=== PATIENT | female | born 1950 | race Caucasian/White ===

== ENCOUNTER → 2017-03-26 | Outpatient (CLI) | payer MEDICARE ==
[~2017-03-26] MED LIST: LATA5OPD OU
--- NOTE | 2017-03-26 09:24 | REPMRS ---
Patient History The patient states she has not had a clinical breast exam in over a year. Patient is postmenopausal and is nulliparous. No known family history of cancer. Digital Woman Screen Mammo: March 26, 2017 - Exam #: [id number] Bilateral CC and MLO view(s) were taken. Technologist: Luz Moncada, Technologist Prior study comparison: 2001, bilateral screening mammogram. FINDINGS: The breast tissue is extremely dense which could obscure a lesion on mammography. There is no evidence of cancer on this mammogram. ASSESSMENT: BI-RADS/ACR category 2 mammogram. Benign finding(s). Recommendation Routine screening mammogram of both breasts in 1 year (for women over age 40). This mammogram was interpreted with the aid of an FDA-approved computer-aided dectection system. Electronically Signed By: Jv Martinez MD 03/26/17 0931
--- NOTE | 2017-03-29 09:34 | DEXA ---
AP SPINE L1 - L4 1.056 -1.1 0.5 LT FEMUR TOTAL 0.832 -1.4 -0.1 RT FEMUR TOTAL 0.747 -2.1 -0.8 TOTAL BODY TOTAL OTHER DUAL FEMUR FRAX* ASSESSMENT Risk factors: Not performed. 10 year probability of fracture Major osteoporotic fracture % Hip fracture % COMMENTS: There is low bone density of the spine and hips. FOLLOW-UP: Recommendation for the next bone density exam: 2 years. SILVAD
== END ==
LOC: M WHC 08:06
PROVIDERS: ATTEND Nurse Practitioner Family
DX: Z12.31 Encounter for screening mammogram for malignant neoplasm of breast (principal); Z13.820 Encounter for screening for osteoporosis
CPT/HCPCS: 77080; G0202

== ENCOUNTER → 2017-04-14 | Outpatient (REF) | payer MEDICARE ==
[2017-04-14 11:57] LABS: MEAN CORPUSCULAR HEMOGLOBIN 29.5 pg (27.0-33.0); MEAN CORPUSCULAR HGB CONC 33.2 g/dl (32.0-36.5); MEAN CORPUSCULAR VOLUME 88.7 fl (80.0-96.0); RED CELL DISTRIBUTION WIDTH 12.6 % (11.5-14.5); WHITE BLOOD COUNT 5.5 K/mm3 (4.0-10.0)
[2017-04-14 12:08] LABS: ALBUMIN 3.7 GM/DL (3.2-5.2); ALBUMIN/GLOBULIN RATIO 1.12 (1.00-1.93); ALKALINE PHOSPHATASE 67 U/L (45-117); ALT/SGPT 16 U/L (12-78); ANION GAP 9 MEQ/L (8-16); AST/SGOT 14 U/L (15-37); BILIRUBIN,TOTAL 0.4 MG/DL (0.2-1.0); BLOOD UREA NITROGEN 18 MG/DL (7-18); CALCIUM LEVEL 9.2 MG/DL (8.8-10.2); CARBON DIOXIDE LEVEL 28 MEQ/L (21-32); CHLORIDE LEVEL 106 MEQ/L (98-107); CHOLESTEROL LEVEL 215 MG/DL (<200); CREATININE FOR GFR 0.92 MG/DL (0.55-1.02); GLOMERULAR FILTRATION RATE > 60.0 (>45); GLUCOSE, FASTING 91 MG/DL (80-110); POTASSIUM SERUM 4.9 MEQ/L (3.5-5.1); SODIUM LEVEL 143 MEQ/L (136-145); TRIGLYCERIDES LEVEL 77 MG/DL (<150)
== END ==
LOC: M SFHCCLAY 08:24
PROVIDERS: ATTEND Nurse Practitioner Family
DX: Z13.0 Encounter for screening for diseases of the blood and blood-forming organs and certain disorders involving the immune mechanism (principal); Z13.1 Encounter for screening for diabetes mellitus; Z13.6 Encounter for screening for cardiovascular disorders; Z13.21 Encounter for screening for nutritional disorder; Z79.899 Other long term (current) drug therapy

== ENCOUNTER 2017-06-15 12:31 | Day surgery (SDC) | payer MEDICARE ==
[~2017-06-15] VITALS: Ht 157.5 cm; Wt 48.1 kg
[2017-06-15] MEDS ORDERED: LR 1,000 ML IV ONE (12:45)
[2017-06-15] MEDS ORDERED: LIDOCAINE 2% INJ 100 MG/5 ML SDV (FOR ANES.) As Ordered ONE (13:09)
[2017-06-15] MEDS ORDERED: PROPOFOL 200 MG/20 ML VIAL As Ordered ONE (13:09)
[2017-06-15] MEDS ORDERED: LABETALOL HCL 100 MG/20 ML VIAL As Ordered ONE (13:54)
--- NOTE | 2017-06-15 14:13 | ROOR ---
Patient Name: Idalia Spence Procedure Date: 06/15/2017 1:29 PM Date of : 1950 Age: 67 Room: [facility] Gender: Female Note Status: Finalized Procedure: Colonoscopy Indications: Screening for colorectal malignant neoplasm, This is the patient's first colonoscopy Providers: Frandy Pickering MD Referring MD: Cindy Lott NP Requesting Provider: Medicines: Monitored Anesthesia Care Complications: No immediate complications. Procedure: Pre-Anesthesia Assessment: - Prior to the procedure, a History and Physical was performed, and patient medications and allergies were reviewed. The patient is competent. The risks and benefits of the procedure and the sedation options and risks were discussed with the patient. All questions were answered and informed consent was obtained. Patient identification and proposed procedure were verified by the physician, the nurse and the anesthesiologist in the procedure room. Mental Status Examination: alert and oriented. Airway Examination: normal oropharyngeal airway and neck mobility. CV Examination: regular rate and rhythm. Prophylactic Antibiotics: The patient does not require prophylactic antibiotics. Prior Anticoagulants: The patient has taken no previous anticoagulant or antiplatelet agents. ASA Grade Assessment: I - A normal, healthy patient. After reviewing the risks and benefits, the patient was deemed in satisfactory condition to undergo the procedure. The anesthesia plan was to use monitored anesthesia care (MAC). Immediately prior to administration of medications, the patient was re-assessed for adequacy to receive sedatives. The heart rate, respiratory rate, oxygen saturations, blood pressure, adequacy of pulmonary ventilation, and response to care were monitored throughout the procedure. The physical status of the patient was re-assessed after the procedure. The was introduced through the anus and advanced to the cecum, identified by appendiceal orifice and ileocecal valve. The colonoscopy was somewhat difficult due to significant looping. The patient tolerated the procedure well. The quality of the bowel preparation was excellent. Findings: The perianal and digital rectal examinations were normal. A 10 mm polyp was found in the hepatic flexure. The polyp was sessile. The polyp was removed with a hot snare. Resection and retrieval were complete. Estimated blood loss: none. The exam was otherwise normal throughout the examined colon. Impression: - One 10 mm polyp at the hepatic flexure, removed with a hot snare. Resected and retrieved. Recommendation: - Discharge patient to home. - Resume previous diet. - Continue present medications. - Await pathology results. - Telephone endoscopist for pathology results in 1 week. Frandy Pickering MD 06/15/2017 2:12:26 PM Number of Addenda: 0 Note Initiated On: 06/15/2017 1:29 PM Estimated Blood Loss: Estimated blood loss: none.
[2017-06-15 14:30] VITALS: BP 177/79
== END 2017-06-15 14:43 | disposition home or self-care (01) ==
LOC: M OPP 12:31
PROVIDERS: ATTEND Surgery
DX: Z12.11 Encounter for screening for malignant neoplasm of colon (principal); Q43.8 Other specified congenital malformations of intestine; D12.3 Benign neoplasm of transverse colon; I10 Essential (primary) hypertension; H40.9 Unspecified glaucoma; Z79.899 Other long term (current) drug therapy

== ENCOUNTER → 2018-11-29 | Outpatient (REF) | payer MEDICARE ==
[~2018-11-29] MED LIST changes: +LATA0.0013 OU; -LATA5OPD OU
[2018-11-30 17:02] LABS: ALBUMIN 3.4 GM/DL (3.2-5.2); ALT/SGPT 15 U/L (12-78); BASO % 0.3 % (0.0-1.0); BILIRUBIN,TOTAL 0.4 MG/DL (0.2-1.0); BLOOD UREA NITROGEN 23 MG/DL (7-18); CALCIUM LEVEL 9.2 MG/DL (8.8-10.2); CARBON DIOXIDE LEVEL 33 MEQ/L (21-32); CHLORIDE LEVEL 107 MEQ/L (98-107); CHOLESTEROL LEVEL 214 MG/DL (<200); CHOLESTEROL RISK RATIO 4.115 (<5); CREATININE FOR GFR 0.96 MG/DL (0.55-1.30); EOS # 0.1 10^3/uL (0.0-0.50); EOS % 1.3 % (0.0-3.0); GLOMERULAR FILTRATION RATE > 60.0 (>45); GLUCOSE, FASTING 72 MG/DL (70-100); HDL CHOLESTEROL 52 MG/DL (>40); HEMATOCRIT 37.9 % (36.0-47.0); HEMOGLOBIN 12.9 g/dl (12.0-15.5); LDL CHOLESTEROL 122 MG/DL (<100); LYMPH # 2.8 10^3/uL (1.5-4.5); LYMPH % 28.7 % (24.0-44.0); MEAN CORPUSCULAR VOLUME 96.9 fl (80.0-96.0); MONO # 0.4 10^3/uL (0.0-0.8); MONO % 4.5 % (0.0-5.0); NEUTROPHILS # 6.3 10^3/uL (1.8-7.7); NEUTROPHILS % 64.7 % (36.0-66.0); NON-HDL-C 162 MG/DL; PLATELET COUNT, AUTOMATED 305 10^3/uL (150-450); POTASSIUM SERUM 4.1 MEQ/L (3.5-5.1); RED BLOOD COUNT 3.91 10^6/uL (4.00-5.40); SODIUM LEVEL 142 MEQ/L (136-145); TOTAL PROTEIN 6.6 GM/DL (6.4-8.2); TRIGLYCERIDES LEVEL 199 MG/DL (<150); WHITE BLOOD COUNT 9.8 10^3/uL (4.0-10.0)
[2018-11-30 17:03] LABS: TOTAL 25(OH) VITAMIN D 24.5 NG/ML (30.0-100.0)
== END ==
LOC: M SFHCCAPE 08:46
PROVIDERS: ATTEND Physician Assistant
DX: E78.00 Pure hypercholesterolemia, unspecified (principal); E55.9 Vitamin D deficiency, unspecified

== ENCOUNTER → 2018-12-19 | Outpatient (CLI) | payer MEDICARE ==
[~2018-12-19] MED LIST changes: +AMLO5TAB6 PO; +ATOR40TA75 PO; +CHLO125TA PO; +LOSA50TA88 PO
--- NOTE | 2018-12-19 18:45 | REP ---
Chest x-ray: Two views. History: Signs and symptoms of circulatory and radiation respiratory system. Findings: The lungs are slightly hyperinflated but free of infiltrate. Pleural angles are sharp. Heart size is normal. Pulmonary vasculature is not increased. No significant bony abnormality. Impression: Mild hyperinflation. Otherwise no acute disease. Electronically Signed by Ethan Pizarro MD 12/19/2018 07:39 P
== END ==
LOC: M RAD 16:19
PROVIDERS: ATTEND Internal Medicine Cardiovascular Disease
DX: R91.8 Other nonspecific abnormal finding of lung field (principal)

== ENCOUNTER → 2018-12-28 | Outpatient (REF) | payer MEDICARE ==
[2018-12-28 18:13] LABS: CALCIUM LEVEL 9.3 MG/DL (8.8-10.2); CREATININE FOR GFR 1.14 MG/DL (0.55-1.30); GLOMERULAR FILTRATION RATE 50.5 (>45)
== END ==
LOC: M LABDRWCV 17:15
PROVIDERS: ATTEND Internal Medicine
DX: N17.9 Acute kidney failure, unspecified (principal); E86.0 Dehydration

== ENCOUNTER → 2018-12-28 | Outpatient (REF) | payer MEDICARE ==
[2018-12-28 18:17] LABS: ALBUMIN 3.9 GM/DL (3.2-5.2); CALCIUM LEVEL 9.3 MG/DL (8.8-10.2); CREATININE FOR GFR 1.14 MG/DL (0.55-1.30); GLOMERULAR FILTRATION RATE 50.5 (>45); PHOSPHORUS LEVEL 3.3 MG/DL (2.5-4.9); POTASSIUM SERUM 3.9 MEQ/L (3.5-5.1)
== END ==
LOC: M LABDRWCV 17:14
PROVIDERS: ATTEND Internal Medicine Cardiovascular Disease
DX: I16.0 Hypertensive urgency (principal); I51.7 Cardiomegaly; R94.31 Abnormal electrocardiogram [ECG] [EKG]

== ENCOUNTER → 2019-03-16 | Outpatient (CLI) | payer MEDICARE ==
--- NOTE | 2019-03-16 10:35 | PFTRPT ---
Height: 62.00 Inches Weight: 104.00 Lbs BSA: 1.45 Diagnosis: R05 DATE OF PROCEDURE: 03/16/2019 ORDERED BY: JAMARCUS Simeon Spirometry: Pre and post bronchodilator study of excellent technical quality. Forced vital capacity borderline. FEV1 in proportion. Obstructive index is, therefore, normal. Flow Volume Loop: Expiratory limb of the flow volume loop suggests a nonspecific limitation. Lung Volumes: Total lung capacity is normal. Residual volume borderline for air trapping. Diffusing Capacity: Diffusing capacity is normal. Hemoglobin: Hemoglobin mildly reduced at 11.4. Airway Mechanics: Airway resistance and conductance are normal. IMPRESSION: Nonspecific limitation with underlying anemia. Please correlate clinically. MTDD
== END ==
LOC: M CARPUL 09:54
PROVIDERS: ATTEND Nurse Practitioner Family
DX: R05 Cough (principal)

== ENCOUNTER → 2019-03-23 | Outpatient (CLI) | payer MEDICARE ==
[~2019-03-23] MED LIST changes: +METHACHOLINE KIT (J7674) INH ONE
--- NOTE | 2019-03-23 10:50 | PFTRPT ---
Height: 62.00 Inches Weight: 104.00 Lbs BSA: 1.45 Diagnosis: R05 DATE OF PROCEDURE: 03/23/2019 ORDERED BY: JAMARCUS Simeon INTERPRETATION: Excellent technical quality. Under protocol, methacholine was administered. At a dose of 2.5 mg or 13.875 CDUs, a 23% decline in the FEV1 was noted. PC of 1.26 is significant. Flow rates did return to baseline post bronchodilator administration. IMPRESSION: Positive methacholine challenge study. MTDD
== END ==
LOC: M CARPUL 09:54
PROVIDERS: ATTEND Nurse Practitioner Family
DX: R05 Cough (principal)
CPT/HCPCS: 94070; 95070; J7674

== ENCOUNTER → 2019-04-13 | Outpatient (CLI) | payer MEDICARE ==
[~2019-04-13] MED LIST changes: -METHACHOLINE KIT (J7674) INH ONE
--- NOTE | 2019-04-13 14:54 | REP ---
Clinical: Trauma/injury with pain. Technique: AP, lateral, bilateral oblique views of the right wrist. Findings: Oblique view demonstrates a very subtle fracture along the lateral aspect of the radial metaphysis along with generalized soft tissue swelling. Underlying age-related changes noted. Impression: Subtle nondisplaced fracture of the distal radial metaphysis. Electronically Signed by Jayesh Kilgore MD 04/13/2019 02:46 P
--- NOTE | 2019-04-13 14:56 | REP ---
Clinical: Trauma. Technique: Frontal view of the chest with multiple views of the right hemithorax. Findings: Osteopenia and degenerative changes are appreciated and somewhat limit evaluation. Frontal view of the chest demonstrates no acute cardiopulmonary process. Multiple views of the right hemithorax demonstrates no obvious acute rib fracture or pathology. Impression: Limited by osteopenia and degenerative changes. No obvious acute right rib fracture identified. Electronically Signed by Jayesh Kilgore MD 04/13/2019 02:48 P
== END ==
LOC: M WUC 14:16
PROVIDERS: ATTEND Nurse Practitioner Family
DX: R07.81 Pleurodynia (principal); S52.501A Unspecified fracture of the lower end of right radius, initial encounter for closed fracture; X58.XXXA Exposure to other specified factors, initial encounter; Y92.89 Other specified places as the place of occurrence of the external cause

== ENCOUNTER → 2019-06-05 | Outpatient (REF) | payer MEDICARE | LOC: M LAB REF 16:04 | PROVIDERS: ATTEND Physician Assistant | DX: N39.0 Urinary tract infection, site not specified (principal) ==

== ENCOUNTER → 2019-07-19 | Outpatient (CLI) | payer MEDICARE ==
--- NOTE | 2019-07-21 14:10 | DEXA ---
AP SPINE L1 - L4 0.998 -1.6 0.1 LT FEMUR TOTAL 0.775 -1.8 -0.4 LT NECK 0.740 -2.1 -0.5 RT FEMUR TOTAL 0.754 -2.0 -0.6 RT NECK 0.724 -2.3 -0.6 TOTAL BODY TOTAL OTHER COMMENTS: There is low bone density of the spine and hips. The density of the spine has decreased 5.5% since 03/26/2017. The density of the left hip has decreased 6.9% since 03/26/2017. The density of the right hip has increased 0.9% since 03/26/2017. FOLLOW-UP: Recommendation for the next bone density exam: 2 years. JACINTO
== END ==
LOC: M WHC 14:54
PROVIDERS: ATTEND Physician Assistant
DX: M85.851 Other specified disorders of bone density and structure, right thigh (principal)

== ENCOUNTER → 2019-07-25 | Outpatient (REF) | payer MEDICARE ==
[2019-07-25 17:03] LABS: ALBUMIN 3.7 GM/DL (3.2-5.2); BASO % 0.6 % (0.0-1.0); BILIRUBIN,TOTAL 0.6 MG/DL (0.2-1.0); CHOLESTEROL RISK RATIO 2.566 (<5); CREATININE FOR GFR 0.98 MG/DL (0.55-1.30); EOS # 0.3 10^3/uL (0.0-0.5); EOS % 4.5 % (0.0-3.0); GLOMERULAR FILTRATION RATE 59.9 (>45); HEMATOCRIT 40.1 % (36.0-47.0); LYMPH # 1.7 10^3/uL (1.5-5.0); LYMPH % 27.3 % (24.0-44.0); MEAN CORPUSCULAR HEMOGLOBIN 29.7 pg (27.0-33.0); MEAN CORPUSCULAR HGB CONC 32.4 g/dl (32.0-36.5); MEAN CORPUSCULAR VOLUME 91.8 fl (80.0-96.0); MONO # 0.4 10^3/uL (0.0-0.8); MONO % 5.7 % (0.0-5.0); NEUTROPHILS # 3.8 10^3/uL (1.5-8.5); NEUTROPHILS % 61.6 % (36.0-66.0); PLATELET COUNT, AUTOMATED 252 10^3/uL (150-450); POTASSIUM SERUM 4.4 MEQ/L (3.5-5.1); RED BLOOD COUNT 4.37 10^6/uL (4.00-5.40); THYROID STIMULATING HORMONE 2.21 uIU/ML (0.358-3.740); WHITE BLOOD COUNT 6.2 10^3/uL (4.0-10.0)
== END ==
LOC: M SFHCCAPE 08:54
PROVIDERS: ATTEND Physician Assistant
DX: I10 Essential (primary) hypertension (principal); E55.9 Vitamin D deficiency, unspecified; E78.00 Pure hypercholesterolemia, unspecified

== ENCOUNTER → 2019-09-07 | Outpatient (REF) | payer MEDICARE | LOC: M LABDRWCV 16:08 | PROVIDERS: ATTEND Internal Medicine Endocrinology, Diabetes & Metabolism | DX: M81.0 Age-related osteoporosis without current pathological fracture (principal) ==

== ENCOUNTER → 2019-12-05 | Outpatient (CLI) | payer MEDICARE ==
[2019-12-05 19:51] LABS: CALCIUM LEVEL 9.2 MG/DL (8.8-10.2); CREATININE FOR GFR 1.08 MG/DL (0.55-1.30); GLOMERULAR FILTRATION RATE 53.5 (>45); POTASSIUM SERUM 4.5 MEQ/L (3.5-5.1)
== END ==
LOC: M WUC 15:58
PROVIDERS: ATTEND Internal Medicine Endocrinology, Diabetes & Metabolism
DX: M81.0 Age-related osteoporosis without current pathological fracture (principal)

== ENCOUNTER → 2020-01-22 | Outpatient (REF) | payer MEDICARE ==
[2020-01-22 17:14] LABS: BASO % 0.5 % (0.0-1.0); EOS # 0.3 10^3/uL (0.0-0.5); EOS % 4.8 % (0.0-3.0); HEMOGLOBIN 13.2 g/dl (12.0-15.5); LYMPH # 1.9 10^3/uL (1.5-5.0); LYMPH % 28.9 % (24.0-44.0); MEAN CORPUSCULAR HEMOGLOBIN 28.9 pg (27.0-33.0); MEAN CORPUSCULAR HGB CONC 31.4 g/dl (32.0-36.5); MEAN CORPUSCULAR VOLUME 92.1 fl (80.0-96.0); MONO # 0.3 10^3/uL (0.0-0.8); MONO % 5.1 % (0.0-5.0); NEUTROPHILS # 3.9 10^3/uL (1.5-8.5); NEUTROPHILS % 60.4 % (36.0-66.0); PLATELET COUNT, AUTOMATED 242 10^3/uL (150-450); RED BLOOD COUNT 4.56 10^6/uL (4.00-5.40); WHITE BLOOD COUNT 6.5 10^3/uL (4.0-10.0)
[2020-01-22 17:50] LABS: ALBUMIN 3.8 GM/DL (3.2-5.2); BILIRUBIN,TOTAL 0.7 MG/DL (0.2-1.0); CALCIUM LEVEL 8.9 MG/DL (8.8-10.2); CHOLESTEROL RISK RATIO 3.413 (<5); CREATININE FOR GFR 1.01 MG/DL (0.55-1.30); FREE T4 0.7 NG/DL (0.76-1.46); GLOMERULAR FILTRATION RATE 57.9 (>45); POTASSIUM SERUM 5.1 MEQ/L (3.5-5.1); THYROID STIMULATING HORMONE 1.77 uIU/ML (0.358-3.740)
[2020-01-23 10:30] LABS: TOTAL 25(OH) VITAMIN D 51.7 NG/ML (30.0-100.0)
== END ==
LOC: M SFHCCLAY 10:51
PROVIDERS: ATTEND Physician Assistant
DX: I10 Essential (primary) hypertension (principal); E78.00 Pure hypercholesterolemia, unspecified; E55.9 Vitamin D deficiency, unspecified

== ENCOUNTER → 2020-01-24 | Outpatient (CLI) | payer MEDICARE ==
[~2020-01-24] MED LIST changes: +AMLO1TAB24 PO; -AMLO5TAB6 PO
--- NOTE | 2020-01-24 17:18 | REP ---
Right shoulder: Three views. History: Acute pain in the right shoulder. Findings: Three views right shoulder demonstrate normal alignment of the glenohumeral and acromioclavicular joints. Periarticular soft tissues are unremarkable. There is diffuse osteopenia. No rib fracture or bony destructive lesion. Impression: Diffuse osteopenia. No acute abnormality. Electronically Signed by Ethan Pizarro MD 01/24/2020 05:07 P
== END ==
LOC: M CLY 15:46
PROVIDERS: ATTEND Physician Assistant
DX: M85.811 Other specified disorders of bone density and structure, right shoulder (principal); M25.511 Pain in right shoulder
CPT/HCPCS: 73030; G0463

== ENCOUNTER → 2020-07-16 | Outpatient (CLI) | payer MEDICARE ==
--- NOTE | 2020-07-16 17:14 | REP ---
INDICATION: M25.511 ACUTE PAIN OF RIGHT SHOULDER. Pain after a fall. COMPARISON: Comparison study January 24, 2020.. TECHNIQUE: Three views. FINDINGS: There is diffuse osteopenia. The right glenohumeral and the right acromioclavicular joints remain normally aligned. No humeral, scapular, or clavicle fracture is seen. The visualized right hemithorax is unremarkable. Periarticular soft tissues are unremarkable. IMPRESSION: Diffuse osteopenia. No traumatic abnormality noted. <Electronically signed by Royer Pizarro > 07/16/20 [id number]
== END ==
LOC: M CLY 11:24
PROVIDERS: ATTEND Physician Assistant
DX: M85.811 Other specified disorders of bone density and structure, right shoulder (principal); M25.511 Pain in right shoulder; Z23 Encounter for immunization
CPT/HCPCS: 73030; 90682; 90732; G0008; G0009

== ENCOUNTER → 2020-09-11 | Outpatient (REF) | payer MEDICARE ==
[~2020-09-11] MED LIST changes: +CALC600T60 PO; +TRUS1SOL OU; +VITMTA PO; +XALA0.007 OU
[2020-09-11 16:41] LABS: BASO % 0.5 % (0.0-1.0); EOS # 0.2 10^3/uL (0.0-0.5); EOS % 2.7 % (0.0-3.0); HEMATOCRIT 43.5 % (36.0-47.0); LYMPH # 2.1 10^3/uL (1.5-5.0); LYMPH % 27.7 % (24.0-44.0); MEAN CORPUSCULAR HEMOGLOBIN 29.8 pg (27.0-33.0); MEAN CORPUSCULAR HGB CONC 32.2 g/dl (32.0-36.5); MEAN CORPUSCULAR VOLUME 92.6 fl (80.0-96.0); MONO # 0.5 10^3/uL (0.0-0.8); NEUTROPHILS # 4.9 10^3/uL (1.5-8.5); PLATELET COUNT, AUTOMATED 259 10^3/uL (150-450); WHITE BLOOD COUNT 7.7 10^3/uL (4.0-10.0)
[2020-09-11 17:17] LABS: ALBUMIN 4.2 GM/DL (3.2-5.2); BILIRUBIN,TOTAL 0.4 MG/DL (0.2-1.0); CALCIUM LEVEL 10.7 MG/DL (8.8-10.2); CHOLESTEROL RISK RATIO 3.075 (<5); CREATININE FOR GFR 1.22 MG/DL (0.55-1.30); FREE T4 0.7 NG/DL (0.76-1.46); GLOMERULAR FILTRATION RATE 46.4 (>39); POTASSIUM SERUM 4.4 MEQ/L (3.5-5.1); THYROID STIMULATING HORMONE 2.16 uIU/ML (0.358-3.740); TOTAL PROTEIN 7.5 GM/DL (6.4-8.2)
[2020-09-11 18:24] LABS: TOTAL 25(OH) VITAMIN D 40.5 NG/ML (30.0-100.0)
== END ==
LOC: M SFHCCLAY 12:54
PROVIDERS: ATTEND Physician Assistant
DX: I10 Essential (primary) hypertension (principal); R79.89 Other specified abnormal findings of blood chemistry; E78.00 Pure hypercholesterolemia, unspecified; E55.9 Vitamin D deficiency, unspecified

== ENCOUNTER → 2020-09-18 | Outpatient (CLI) | payer MEDICARE | LOC: M LABSMTC 11:49 | PROVIDERS: ATTEND Anesthesiology | DX: Z20.828 Contact with and (suspected) exposure to other viral communicable diseases (principal) ==

== ENCOUNTER → 2020-09-19 | Outpatient (CLI) | payer MEDICARE ==
--- NOTE | 2020-09-20 01:33 | REP ---
INDICATION: J45.20 MILD INTERMITTENT ASTHMA UNCOMPICATED COMPARISON: 12/23/2018 TECHNIQUE: PA and lateral. FINDINGS: The mediastinum and cardiac silhouette are normal. The lung gudino are clear and without acute consolidation, effusion, or pneumothorax. The skeletal structures are intact and normal. IMPRESSION: No acute cardiopulmonary process. <Electronically signed by Jayesh Kilgore > 09/20/20 0129
== END ==
LOC: M CLY 12:38
PROVIDERS: ATTEND Nurse Practitioner Family
DX: J45.20 Mild intermittent asthma, uncomplicated (principal)
CPT/HCPCS: 71046; G0463

== ENCOUNTER 2020-09-23 07:46 | Day surgery (SDC) | payer MEDICARE ==
[~2020-09-23] VITALS: Ht 157.5 cm; Wt 52.3 kg
[~2020-09-23 07:46] MED LIST changes: +CEFUROXIME 1MG/0.1ML INTRACAMERAL INJ As Ordered ONE; +DUOVISC (0.50ML VISCOAT/0.55ML PROVISC) OPHTH KIT As Ordered ONE; +OFLOXACIN 0.3 % (OCUFLOX) OPTH SOL 5ML OS ONE; +PHENYLEPHRINE 2.5% OPHTH SOL 2ML OS ONE; +POVIDONE-IODINE 5% OPHTH PREP SOL 30ML As Ordered ONE; +PROPARACAINE 0.5% OPHTH SOL 15ML OS ONE; +TROPICAMIDE 1% OPHTH SOLN 2ML OS ONE
--- OUTSIDE RECORDS SUMMARY | 2020-09-23 07:49 | CCD | Continuity of Care Document ---
Author Organization Unknown Address Unknown Phone Unavailable Care Team Providers Care Early Childhood Assistant Name Role Phone Keesha Umanzor AUTM [phone] Problems Active Problems Provider Date Essential hypertension Onset: 04/20/2017 Minimal depression Onset: 01/18/2019 Pure hypercholesterolemia Onset: 019 Vitamin D deficiency Onset: 04/20/2017 Social History Type Date Description Comments Sex Unknown Tobacco Use Start: Unknown Never Smoked Cigarettes Smoking Status Reviewed: 11/28/19 Never Smoked Cigarettes ETOH Use Rarely consumes alcohol Allergies, Adverse Reactions, Alerts Active Allergies Reaction Severity Comments Date Lisinopril 06/23/2019 Medications Active Medications SIG Qnty Indications Ordering Provide r Date Zoledronic Acid 5mg/100ML Solution once yearly M81.0 Edelmira Price MD 09/14/2019 Carvedilol 6.25mg Tablets 1 p o bid Unknown Amlodipine Besylate 10mg Tablets Take 1 Tablet By Mouth Once Daily Unknown Atorvastatin Calcium 40mg Tablets Take 1 Tablet By Mouth Every Night AT Bedtime Unknown Latanoprost 0.005% Solution 1 gtt each eye at bedtime Unknown Dorzolamide HCL/Timolol Maleate 22.3-6.8mg/ml Solution Instill 1 Drop Into Each Eye Twice Daily Unknown Calcium Citrate + D3 [id number] Tablets 2 po qd Unknown Centrum Silver 50+Women 50+Women T ablets 1 po qd Unknown Biotin 1000mcg Tablets 2 po q d Unknown Vitamin D 50mcg (2000 Ut) Tablets 2 by mouth every day Unknown Immunizations CPT Code Status Date Vaccine Lot # [id number] Given 04/27/2019 Pneumococcal Con jugate Vaccine 13 Valent For Intramuscular Use Vital Signs Date Vital Result Comment 09/14/2019 12:45pm BP Systolic 118 mmHg BP Diastolic 74 mmHg Heart Rate 68 /min Height 61.5 inches 5'1.50" Weight 110.12 lb BMI (Body Mass Index) 20.5 kg/m2 O2 % BldC Oximetry 98 % 08/29/2019 1:46pm BP Systolic 112 mmHg BP Diastolic 62 mmHg Heart Rate 61 /min Height 61.5 inches 5'1.50" Weight 112.50 lb BMI (Body Mass Index) 20.9 kg/m2 O2 % BldC Oximetry 97 % Results Test Acquired Date Facility Test Result H/L Range Note CBC With Differential 09/11/[address] [address] ([phone] - White Blood Count 7.7 10 Normal 4.0-10.0 Red Blood Count 4.70 10 Normal 4.00-5.40 Hemoglobin 14.0 g/dL Normal 12.0-15.5 Hematocrit 43.5 % Normal 36.0-47.0 Mean Corpuscular Volume 92.6 fl Normal 80.0-96.0 Mean Corpuscular Hemoglobin 29.8 pg Normal 27.0-33.0 Mean Corpuscular HGB Conc 32.2 g/dL Normal 32.0-36.5 Red Cell Distribution Width 12.5 % Normal 11.5-14.5 Platelet Count, Automated 259 10 Normal 150-450 Neutrophils % 63.0 % Normal 36.0-66.0 Lymph % 27.7 % Normal 24.0-44.0 [place] % 6.0 % High 0.0-5.0 Eos % 2.7 % Normal 0.0-3.0 Baso % 0.5 % Normal 0.0-1.0 Immature Granulocyte % 0.1 % Normal 0-3.0 Nucleated Red Blood Cell % 0.0 % Normal 0-0 Neutrophils # 4.9 10 Normal 1.5-8.5 Lymph # 2.1 10 Normal 1.5-5.0 [place] # 0.5 10 Normal 0.0-0.8 Eos # 0.2 10 Normal 0.0-0.5 Baso # 0.0 10 Normal 0.0-0.2 Comprehensive Metabolic Profil 09/11/[address] [place] [address] [phone] - Glucose, Fasting 100 mg/dL Normal 70-100 Blood Urea Nitrogen 14 mg/dL Normal 7-18 Creatinine For GFR 1.22 mg/dL Normal 0.55-1.30 Glomerular Filtration Rate 46.4 Normal >39 1 Sodium Level 142 mEq/L Normal 136-145 Potassium Serum 4.4 mEq/L Normal 3.5-5.1 Chloride Level 106 mEq/L Normal 98-107 Carbon Dioxide Level 30 mEq/L Normal 21-32 Anion Gap 6 mEq/L Low 8-16 Calcium Level 10.7 mg/dL High 8.8-10.2 Ast/Sgot 17 U/L Normal 7-37 Alt/SGPT 21 U/L Normal 12-78 Alkaline Phosphatase 60 U/L Normal 45-117 Bilirubin,Total 0.4 mg/dL Normal 0.2-1.0 Total Protein 7.5 GM/DL Normal 6.4-8.2 Albumin 4.2 GM/DL Normal 3.2-5.2 Albumin/Globulin Ratio 1.3 Normal 1.2-2.2 Lipid Panel 09/11/2020 [facility] [address] [place] [address] [phone] - Triglycerides Level 182 mg/dL High <150 Cholesterol Level 163 mg/dL Normal <200 HDL Cholesterol 53 mg/dL Normal >40 LDL Cholesterol 74 mg/dL Normal <100 Non-HDL-C 110 mg/dL Normal Cholesterol Risk Ratio 3.075 Normal <5 FT4&TSH Panel 09/11/2020 [facility] [address] [place] [address] [phone] - Thyroid Stimulating Hormone 2.160 uIU/ML Normal 0.358- 3.740 Free T4 0.70 ng/dL Low 0.76-1.46 Laboratory test finding 09/11/2020 [facility] [address] [place] [address] [phone] - Total 25(Oh) Vitamin D 40.5 NG/ML Normal 30.0-100.0 2 1 Units are mL/min/1.73 m2 Chronic Kidney Disease Staging per NKF: Stage I & II GFR >=60 Normal to Mildly Decreased Stage III GFR 30-59 Moderately Decreased Stage IV GFR 15-29 Severely Decreased Stage V GFR <15 Very Little GFR Left ESRD GFR <15 on LOBBY CONCIERGE 2 note:<nlbl:demographic_chang ed> note:<nlbl:demographic_changed> Procedures Description No Information Available Medical Devices Description No Information Available Encounters Description No Information Available Assessments Description No Information Available Plan of Treatment Future Appointment(s):* 09/17/2020 12:45 pm - Edelmira Price MD at DR. Edelmira Price 11/28/2019 - Destinee Mix NP* M81.0 Age-related osteoporosis without current pathological fracture* New Labs:* Basic Metabolic Profile, Scheduled: 09/09/20 * Vitamin D 25-Hydroxy, Scheduled: 09/09/20 * Comments:* Patient is of small build. She has suffered a right wrist fracture. She has a clinical diagnosis of osteoporosis.DEXA scan 07/2019 also reviewed. T-scores and history of fracture consistent with osteoporosis.She only has Medicare and no supplement. Therefore not a candidate for Forteo or Tymlos due to cost factor. Also cannot afford Prolia.Recommend that she start once yearly IV zoledronic acid. Pt agreedLabs 07/25/19- GFR = 59, creatinine = 0.9, calcium = 9.0, TSH = 2.2Vitamin D = 45 Pt had IV Zoledronic Acid 09/14/2019 in office. Did not have post Reclast labs done- BMP Will be due for Reclast in 09/2020- will need labs 7-10 days prior to infusion * Follow up:* RTO in September CBF for in office Reclast * Z87.310 Personal history of (healed) osteoporosis fracture* Comments:* Patient had right wrist fracture. Fracture was Fall 2018. * E55.9 Vitamin D deficiency, unspecified* Comments:* November 2018- vitamin D = 25. Insufficient. She is taking Centrum which has calcium and D. Also taking 1000 mg of vitamin D daily. Labs done 07/2019- Vit D= 45Will recheck with next labs Functional Status Description No Information Available Mental Status Description No Information Available Referrals Refer to Reason for Referral Status Appt Date Edelmira Price MD RECLAST NO AUTH REQUIRED PER WEB. . [facility], [address] [place] [address] [phone]
--- OUTSIDE RECORDS SUMMARY | 2020-09-23 07:49 | CCD ---
Author Author [facility] Organization [facility] Address Unknown Phone Unavailable Care Team Providers Care Jewelry Salesperson Name Role Phone Keesha Umanzor Unavailable PROBLEMS Type Condition ICD9-CM Code JWE04-VD Code Onset Dates Condition S tatus W/U Status Risk SNOMED Code Notes Problem Age-related osteoporosis without current pathological fracture M81.0 Active confirmed [id number] Problem Medicare annual wellness visit, subsequent Z00.00 Active confirmed 993805435 Problem Essential hypertension I10 Active confirmed 58428768 Problem Mild intermittent asthma, uncomplicated J45.20 Active confirmed 536783750 Problem Other chronic pain G89.29 Active confirmed 8 9530962 Problem Vitamin D deficiency E55.9 Active confirmed 19327891 Problem Other hyperlipidemia E78.4 Active confirmed 99754361 Problem Pure hypercholesterolemia E78.00 Active confirmed 957664904 Problem Minimal depression F32.9 Active confirmed 7 [id number] ALLERGIES Allergen (clinical drug ingredient) Drug/Non Drug Allergy do cumented on EMR Reaction Allergy Type Onset Date Status Lisinopril Renal insufficiency Non Drug Allergy Active ENCOUNTERS from 1950 to 2020-09-11 Encounter Location Date Provider Diagnosis [address] [address] Aug, Keesha Umanzor IMMUNIZATIONS Vaccine Route Administration Date Status Influenza (18 yrs & older) Flublok IM Intramuscular Jul 16, 2020 Administered Influenza (18 yrs & older) Flublok IM Intramuscular Apr 27 9 Administered Pneumococcal Adult 0.5mL (Pneumovax 23) IM Intramuscular Jul 16, 2020 Administered Pneumococcal 0.5mL (Prevnar 13) IM Intramuscular Apr 27, 2019 Administered SOCIAL HISTORY Tobacco Use: Social History Observation Description Date Details (start date - stop date) Never Smoker Sex Assigned At : Social History Observation Description Sex Assigned At Unknown Audit Question Answer Notes Total Score: 0 Interpretation: Alcohol Education Language: Question Answer Notes Languages spoken: Azeri Pentecostalism: Question Answer Notes Pentecostalism No oriental orthodox beliefs that would impact health care. Sexual Hx: Question Answer Notes Had sex in the last 12 months (vaginal, oral, or anal)? No Have you ever had an STD? No Drug and Alcohol Question Answer Notes Total Score: 0 Interpretation: No problems reported Alcohol Screening: Question Answer Notes Did you have a drink containing alcohol in the past year? No Points 0 Interpretation Negative Tobacco Use: Question Answer Notes Are you a: never smoker REASON FOR REFERRAL No Information VITAL SIGNS No information MEDICATIONS Medication SIG (Take, Route, Frequency, Duration) Notes Start Da te End Date Status Multi Complete - as directed Orally Active Coricidin HBP Cough/Cold 4-30 MG 1 tablet as needed Orally every 6 hrs Jun, Not-Taking Latanoprost 0.005 % 1 drop into affected eye in the evening Ophthalmic Once a day Active Dorzolamide HCl 2 % 1 drop into affected eye Ophthalmic Three times a day Active Carvedilol 6.25 MG 1 tablet with food Orally Twice a day for 30 day(s ) Active Arnuity Ellipta 100 MCG/ACT 1 puff Inhalation Once a day Not-Taking Atorvastatin Calcium 40 MG Take 1 tablet by mouth once daily for 90 days for 90 Active Ventolin HFA 108 (90 Base) MCG/ACT 2 puffs as needed Inhalation every 6 hrs Nov, Active AmLODIPine Besylate 10 MG 1 tablet Orally Once a day Active Benzonatate 200 MG 1 capsule Orally Three times a day for 7 day( s) Jun, Not-Taking PROCEDURES No Information RESULTS No Results REASON FOR VISIT referral MEDICAL (GENERAL) HISTORY Type Description Date Medical History OSTEOPOROSIS Medical History RENAL CALCULI Medical History HISTORY OF PNEUMONIA Medical History hypertension Medical History Asthma Medical History hyperlipidemia Surgical History No Surgical history information Hospitalization History kidney stones x6 Goals Section No Information Health Concerns No Information MEDICAL EQUIPMENT No Information MENTAL STATUS No Information FUNCTIONAL STATUS No Information ASSESSMENTS No Information PLAN OF TREATMENT Next Appt Details Provider Name:Keesha Umanzor, 2020-09 11:30:00 AM, [address] [place], [address], Insurance Providers Payer Name Payer Address Payer Phone Insured Name Patient Relati onship to Insured Coverage Start Date Coverage End Date [facility] [address] [address] [facility] [address] [phone] EMILY ALMENDAREZ self
--- OUTSIDE RECORDS SUMMARY | 2020-09-23 07:50 | CCD ---
Author Author [facility] Organization [facility] Address Unknown Phone Unavailable Care Team Providers Care Sorting Cows Worker Name Role Phone Keesha Umanzor Unavailable PROBLEMS Type Condition ICD9-CM Code [id number] Code Onset Dates Condition S tatus SNOMED Code Notes Problem Age-related osteoporosis without current pathological fracture M81.0 Active 96622411 Problem Medicare annual wellness visit, subsequent Z00.00 Active 883159046 Problem Minimal depression F32.9 Active 850980072 Problem Mild intermittent asthma, uncomplicated J45.20 Active 292408148 Problem Essential hypertension I10 Active 33675421 Problem Vitamin D deficiency E55.9 Active 30171987 Problem Other hyperlipidemia E78.4 Active 41784580 Problem Pure hypercholesterolemia E78.00 Active 810118 004 ALLERGIES Allergen (clinical drug ingredient) Drug/Non Drug Allergy do cumented on EMR Reaction Allergy Type Onset Date Status Lisinopril Renal insufficiency Non Drug Allergy Active ENCOUNTERS from 1950 to 2020-08-20 Encounter Location Date Provider Diagnosis [facility] [address] [place] [address] Jul Keesha Umanzor Annual physical exam Z00.00 ; Encounter for vaccination Z23 and Acute pain of right shoulder M25.511 IMMUNIZATIONS Vaccine Route Administration Date Status Influenza [...] Education Language: Question Answer Notes Languages spoken: Ugandan Mandaen: Question Answer Notes Mandaen No islam beliefs that would impact health care. Sexual [...] REASON FOR REFERRAL No Information VITAL SIGNS Weight 112 lbs lbs Jul, Height 5'1 1/2 in Jul, BMI 21.87 kg/m2 Jul, Heart Rate 70 /min Jul, Respiratory Rate 18 /min Jul, Temperature 98.6 degrees Fahrenheit Jul, Oximetry 100%ra Jul, Blood pressure systolic 146 mm Hg Jul, Blood pressure diastolic 74 mm Hg Jul, MEDICATIONS Medication SIG (Take, Route, Frequency, Duration) [...] for 7 day( s) Jun, Not-Taking PROCEDURES from 1950 to 2020-08-20 Procedure Date Ordered Result Body Site Immunization: Flublok Quadrivalent (18 years & older) 0.5mL IM (Influenza) 2020-07-16 N/A Immunization: Pneumovax 23 0.5mL IM (Pneumococcal) 2020-07-16 N/A RESULTS Component Value Reference Range CARLOS SHOULDER COMPLETE Reviewed date:07/30/2020 08:06:36 Interpretation: Performing Lab:[facility],[address] [place] ,[place] [address] REASON FOR VISIT AWV, 6 month f/u and lab review/ will come fasting to appt MEDICAL (GENERAL) HISTORY Type Description Date Medical History OSTEOPOROSIS Medical History RENAL CALCULI Medical History HISTORY OF PNEUMONIA Medical History hypertension Medical History Asthma Medical History hyperlipidemia Surgical History No Surgical history information Hospitalization History kidney stones x6 Goals Section No Information Health Concerns No Information MEDICAL EQUIPMENT No Information MENTAL STATUS No Information FUNCTIONAL STATUS No Information ASSESSMENTS Encounter Date Diagnosis Assessment Notes Treatment Notes Treatm ent Clinical Notes Jul, Annual physical exam (ICD-10 - Z00.00) Jul, Encounter for vaccination (ICD-10 - Z23) Patient Educated with: FLU Vaccine, Inactivated [id number] (FLU Vaccine, Inactivated [id number].pdf) Patient Educated with: PPSV23 [id number].pdf (PPSV23 [id number].pdf) Jul, Acute pain of right shoulder (ICD-10 - M25.511) PLAN OF TREATMENT Treatment Notes Assessment Notes Clinical Notes Encounter for vaccination Patient Educated with: FLU V accine, Inactivated [id number] (FLU Vaccine, Inactivated [id number].pdf) Patient Educated with: PPSV23 [id number].pdf (PPSV23 [id number].pdf) Next Appt Details September follow up with review of labs Jarrell weber: Provider Name:Keesha Fontaine Umanzor, 2020-09 11:30:00 AM, [place], [address], Insurance Providers Payer Name Payer Address Payer Phone Insured Name Patient Relati onship to Insured Coverage Start Date Coverage End Date MEDICARE COMPLETE [facility] [address] [address] [facility] [id number] EMILY ALMENDAREZ self
--- OUTSIDE RECORDS SUMMARY | 2020-09-23 07:50 | CCD ---
Author Author [facility] Organization [facility] Address Unknown Phone Unavailable Care Team Providers Care Physical Security Engineer Name Role Phone Keesha Umanzor Unavailable PROBLEMS Type Condition ICD9-CM Code [id number] Code Onset Dates Condition S tatus SNOMED Code Notes Problem Age-related osteoporosis without current pathological fracture M81.0 Active 04221837 Problem Medicare annual wellness visit, subsequent Z00.00 Active 515394371 Problem Essential hypertension I10 Active 57074502 Problem Mild intermittent asthma, uncomplicated J45.20 Active 761122019 Problem Other chronic pain G89.29 Active 10919348 Problem Vitamin D deficiency E55.9 Active 98483066 Problem Other hyperlipidemia E78.4 Active 16087384 Problem Pure hypercholesterolemia E78.00 Active 561665 004 Problem Minimal depression F32.9 Active 655302081 ALLERGIES Allergen (clinical drug ingredient) Drug/Non Drug Allergy do cumented on EMR Reaction Allergy Type Onset Date Status Lisinopril Renal insufficiency Non Drug Allergy Active ENCOUNTERS from 1950 to 2020-09-03 Encounter Location Date Provider Diagnosis [facility] [address] [place] [address] 25 Aug Keesha Umanzor Pain in right shoulder M25.511 ; Other c hronic pain G89.29 and Stiffness of right shoulder joint M25.611 IMMUNIZATIONS Vaccine Route Administration Date Status Influenza [...] Education Language: Question Answer Notes Languages spoken: Greek Jew: Question Answer Notes Jew No restorationist beliefs that would impact health care. Sexual [...] Information RESULTS No Results REASON FOR VISIT ORDERS MEDICAL (GENERAL) HISTORY Type Description Date Medical [...] Notes Treatment Notes Treatm ent Clinical Notes Aug, Pain in right shoulder (ICD-10 - M25.511) Aug, Other chronic pain (ICD-10 - G89.29) Aug, Stiffness of right shoulder joint (ICD-10 - M25. 611) PLAN OF TREATMENT Next Appt Details Provider Name:Keesha Umanzor, 2020-09 11:30:00 AM, [address] , [place], [address], Insurance Providers Payer Name Payer Address Payer Phone Insured Name Patient Relati onship to Insured Coverage Start Date Coverage End Date MEDICARE COMPLETE [employer] [address] [address] [facility] [id number] EMILY ALMENDAREZ self
--- OUTSIDE RECORDS SUMMARY | 2020-09-23 07:50 | CCD | Continuity of Care Document ---
Author Author Idalia BHATTI PA-C Organization Unknown Address [address] [place] [address] Phone [phone] Care Team Providers Care Deployment Specialist Name Role Phone Keesha UmanzorM [phone] Problems Description No Information Available Social History Type Date Description Comments Sex Unknown Allergies, Adverse Reactions, Alerts Description No Information Available Medications Description No Information Available Immunizations Description No Information Available Vital Signs Description No Information Available Results Description No Information Available Procedures Description No Information Available Medical Devices Description No Information Available Encounters Type Date Location Provider Dx Diagnosis Office Visit 08/29/2020 2:00p [place] Kirill Bhatti PA-C S4 6.011D Strain of musc/tend the rotator cuff of right shoulder, subs Assessments Date Code Description Provider 08/29/2020 S46.011D Strain of muscle(s) and tendon(s) of the rotator cuff of right shoulder, subsequent encounter Kirill Bhatti PA-C Plan of Treatment Future Appointment(s):* 09/26/2020 1:45 pm - Kirill Bhatti PA-C at [place] 08/29/2020 - Kirill Bhatti PA-C* S46.011D Strain of muscle(s) and tendon(s) of the rotator cuff of right shoulder, subsequent encounter* Follow up:* in 4 weeks for right shoulder recheck with bms Functional Status Description No Information Available Mental Status Description No Information Available Referrals Description No Information Available
--- OUTSIDE RECORDS SUMMARY | 2020-09-23 07:50 | CCD ---
Continuity of Care Document (CCD) Created on: 09/11/2020 Idalia Spence External Reference #: [id number] : 1950 Sex: Female Author Author Idalia BHATTI PA-C Organization Unknown Address [address] [place] [address] Phone [phone] Care Team Providers Care Buckle Inspector Name Role Phone Keesha UmanzorM [phone] Problems Description No Information Available Social History [...] Provider Dx Diagnosis Office Visit 08/29/2020 2:00p [place] Kirill Bhatti PA-C S4 6.011D Strain of musc/tend the rotator cuff of right shoulder, subs Assessments Date Code Description Provider 08/29/2020 S46.011D Strain of muscle(s) and tendon(s) of the rotator cuff of right shoulder, subsequent encounter Kirill Bhatti PA-C Plan of Treatment Future Appointment(s):* 09/26/2020 1:45 pm - Kirill Bhatti PA-C at [place] 08/29/2020 - Kirill Bhatti PA-C* S46.011D Strain of muscle(s) and tendon(s) of the rotator cuff of right shoulder, subsequent encounter* Follow up:* in 4 weeks for right shoulder recheck with bms Functional Status Description No Information Available Mental Status Description No Information Available Referrals Description No Information Available
--- OUTSIDE RECORDS SUMMARY | 2020-09-23 07:50 | CCD ---
Author Author [facility] Organization [facility] Address Unknown Phone Unavailable Care Team Providers Care Executive Director Of Marketing Name Role Phone Keesha Umanzor Unavailable PROBLEMS Type Condition ICD9-CM Code [id number] Code Onset Dates Condition S tatus SNOMED Code Notes Problem Age-related osteoporosis without current pathological fracture M81.0 Active 87075044 Problem Medicare annual wellness visit, subsequent Z00.00 Active 544724899 Problem Minimal depression F32.9 Active 172920381 Problem Mild intermittent asthma, uncomplicated J45.20 Active 605251402 Problem Essential hypertension I10 Active 15228966 Problem Vitamin D deficiency E55.9 Active 05624910 Problem Other hyperlipidemia E78.4 Active 27776398 Problem Pure hypercholesterolemia E78.00 Active 888017 004 ALLERGIES Allergen (clinical drug ingredient) Drug/Non Drug Allergy do cumented on EMR Reaction Allergy Type Onset Date Status Lisinopril Renal insufficiency Non Drug Allergy Active ENCOUNTERS from 1950 to 2020-06-25 Encounter Location Date Provider Diagnosis [facility] [address] [place] [address] Jun Keesha Umanzor IMMUNIZATIONS Vaccine Route Administration Date Status Influenza (18 yrs & older) Flublok IM Intramuscular Apr 27 9 Administered Pneumococcal 0.5mL (Prevnar 13) IM Intramuscular Apr 27, 2019 Administered SOCIAL HISTORY Tobacco Use: Social History Observation Description Date Details (start date - stop date) Never Smoker Sex Assigned At : Social History Observation Description Sex Assigned At Unknown Audit Question Answer Notes Total Score: 0 Interpretation: Alcohol Education Language: Question Answer Notes Languages spoken: Cuban Mormonism: Question Answer Notes Mormonism No synagogue beliefs that would impact health care. Sexual [...] Multi Complete - as directed Orally Active Ventolin HFA 108 (90 Base) MCG/ACT 2 puffs as needed Inhalation every 6 hrs Nov, Active Coricidin HBP Cough/Cold 4-30 MG 1 tablet as needed Orally every 6 hrs Jun, Not-Taking Arnuity Ellipta 100 MCG/ACT 1 puff Inhalation Once a day Not-Taking AmLODIPine Besylate 10 MG 1 tablet Orally Once a day Active Latanoprost 0.005 % 1 drop into affected eye in the evening Ophthalmic Once a day Active Benzonatate 200 MG 1 capsule Orally Three times a day for 7 day( s) Jun, Not-Taking Atorvastatin Calcium 40 MG Take 1 tablet by mouth once daily for 90 days for 90 Active PROCEDURES No Information RESULTS No Results REASON FOR VISIT refill MEDICAL (GENERAL) HISTORY Type Description Date Medical [...] Information ASSESSMENTS No Information PLAN OF TREATMENT Medication Medication Name Sig Start Date Stop Date Ventolin HFA 108 (90 Base) MCG/ACT 2 puffs as needed Inhalat ion every 6 hrs Nov, AmLODIPine Besylate 10 MG 1 tablet Orally Once a day Atorvastatin Calcium 40 MG Take 1 tablet by mouth once daily for 90 days for 90 Next Appt Details Provider Name:Keesha Umanzor, 2020-07 10:30:00 AM, [address] [place], [address], Insurance Providers Payer Name Payer Address Payer Phone Insured Name Patient Relati onship to Insured Coverage Start Date Coverage End Date MEDICARE COMPLETE [employer] [address] [address] [facility] [id number] EMILY ALMENDAREZ self
--- OUTSIDE RECORDS SUMMARY | 2020-09-23 07:50 | CCD ---
Author Author [facility] Organization [facility] Address Unknown Phone Unavailable Care Team Providers Care Stock Broker Name Role Phone Elena Bullock, Minal Murphy MD, FACS Unavailable Unavailable Parker Kobe, Minal Murphy MD, FACS Unavailable Unavailable Parker Kobe, Minal Murphy MD, FACS Unavailable Unavailable Parker Kobe, Minal Murphy MD, FACS Unavailable Unavailable Parker Kobe, Minal Murphy MD, FACS Unavailable Unavailable Parker Kobe, Minal Murphy MD, FACS Unavailable Unavailable Parker oKbe, Minal Murphy MD, FACS Unavailable Unavailable Parker Kobe, Minal Murphy MD, FACS Unavailable Unavailable Parker Kobe, Minal Murphy MD, FACS Unavailable Unavailable Parker Bullock, Minal Murphy MD, FACS Unavailable Unavailable Parker Kobe, Minal Murphy MD, FACS Unavailable Unavailable Parker Kobe, Minal Murphy MD, FACS Unavailable Unavailable Parker Kobe, Minal Murphy MD, FACS Unavailable Unavailable Parker Kobe, Minal Murphy MD, FACS Unavailable Unavailable Parker Kobe, Minal Murphy MD, FACS Unavailable Unavailable Parker Kobe, Minal Murphy MD, FACS Unavailable Unavailable Parker Kobe, Minal Murphy MD, FACS Unavailable Unavailable Parker Kobe, Minal Murphy MD, FACS Unavailable Unavailable Parker Kobe, Minal Murphy MD, FACS Unavailable Unavailable Parker Kobe, Minal Murphy MD, FACS Unavailable Unavailable Parker Kobe, Minal Murphy MD, FACS Unavailable Unavailable Parker Bullock, Minal Murphy MD, FACS Unavailable Unavailable Parker Bullock, Minal Murphy MD, FACS Unavailable Unavailable Parker Bullock, Minal Murphy MD, FACS Unavailable Unavailable Parker Bullock, Minal Murphy MD, FACS Unavailable Unavailable Parker Bullock, Minal Murphy MD, FACS Unavailable Unavailable Parker Bullock, Minal Murphy MD, FACS Unavailable Unavailable Parker Bullock, Minal Murphy MD, FACS Unavailable Unavailable Parker Bullock, Minal Murphy MD, FACS Unavailable Unavailable Parker Bullock, Minal Murphy MD, FACS Unavailable Unavailable Parker Bullock, Minal Murphy MD, FACS Unavailable Unavailable Parker Bullock, Minal Murphy MD, FACS Unavailable Unavailable Parker Bullock, Minal Murphy MD, FACS Unavailable Unavailable Parker Bullock, Minal Murphy MD, FACS Unavailable Unavailable Sharif, L Radha PA Unavailable Unavailable Sharif, L Radha PA Unavailable Unavailable Sharif, L Radha PA Unavailable Unavailable Sharif, L Radha PA Unavailable Unavailable Sharif, L Radha PA Unavailable Unavailable Sharif, L Radha PA Unavailable Unavailable Sharif, L Radha PA Unavailable Unavailable Sharif, L Radha PA Unavailable Unavailable Sharif, L Radha PA Unavailable Unavailable Sharif, L Radha PA Unavailable Unavailable Sharif, L Radha PA Unavailable Unavailable Sharif, L Radha PA Unavailable Unavailable Sharif, L Radha PA Unavailable Unavailable Sharif, L Radha PA Unavailable Unavailable Sharif, L Radha PA Unavailable Unavailable Sharif, L Radha PA Unavailable Unavailable Sharif, L Radha PA Unavailable Unavailable Sharif, L Radha PA Unavailable Unavailable Sharif, L Radha PA Unavailable Unavailable Sharif, L Radha PA Unavailable Unavailable Sharif, L Radha PA Unavailable Unavailable Sharif, L Radha PA Unavailable Unavailable Sharif, L Radha PA Unavailable Unavailable Av Price MD Unavailable Unavailable Av Price MD Unavailable Unavailable Av Price MD Unavailable Unavailable Av Price MD Unavailable Unavailable Av Price MD Unavailable Unavailable Av Price MD Unavailable Unavailable Av Price MD Unavailable Unavailable Av Price MD Unavailable Unavailable Av Price MD Unavailable Unavailable Av Price MD Unavailable Unavailable Av Price MD Unavailable Unavailable Av Price MD Unavailable Unavailable Av Price MD Unavailable Unavailable Av Price MD Unavailable Unavailable Av Price MD Unavailable Unavailable Av Price MD Unavailable Unavailable Av Price MD Unavailable Unavailable Av Price MD Unavailable Unavailable Av Price MD Unavailable Unavailable Av Price MD Unavailable Unavailable Av Price MD Unavailable Unavailable Av Price MD Unavailable Unavailable Av Price MD Unavailable Unavailable Fish, Av Hickey MD Unavailable Unavailable Fish, Av Hickey MD Unavailable Unavailable Fish, Av Hickey MD Unavailable Unavailable Fish, Av Hickey MD Unavailable Unavailable Fish, Av Hickey MD Unavailable Unavailable Fish, Av Hickey MD Unavailable Unavailable Fish, Av Hickey MD Unavailable Unavailable Fish, Av Hickey MD Unavailable Unavailable Fish, Av Hickey MD Unavailable Unavailable Fish, Av Hickey MD Unavailable Unavailable Fish, Av Hickey MD Unavailable Unavailable Fish, Av Hickey MD Unavailable Unavailable Fish, Av Hickey MD Unavailable Unavailable Fish, Av Hickey MD Unavailable Unavailable Fish, Av Hickey MD Unavailable Unavailable Fish, Av Hickey MD Unavailable Unavailable Fish, Av Hickey MD Unavailable Unavailable Fish, Av Hickey MD Unavailable Unavailable Fish, B Edelmira ROSENBAUM Unavailable Unavailable Fish, B Edelmira ROSENBAUM Unavailable Unavailable Fish, B Edelmira ROSENBAUM Unavailable Unavailable Fish, B Edelmira ROSENBAUM Unavailable Unavailable Fish, B Edelmira ROSENBAUM Unavailable Unavailable Fish, B Edelmira ROSENBAUM Unavailable Unavailable Fish, B Edelmira ROSENBAUM Unavailable Unavailable Fish, B Edelmira ROSENBAUM Unavailable Unavailable Fish, B Edelmira ROSENBAUM Unavailable Unavailable Fish, B Edelmira ROSENBAUM Unavailable Unavailable Fish, B Edelmira ROSENBAUM Unavailable Unavailable Fish, B Edelmira ROSENBAUM Unavailable Unavailable Fish, Av Hickey MD Unavailable Unavailable Fish, B Edelmira ROSENBAUM Unavailable Unavailable Fish, Av Hickey MD Unavailable Unavailable Fish, B Edelmira ROSENBAUM Unavailable Unavailable Fish, B Edelmira ROSENBAUM Unavailable Unavailable Fish, B Edelmira ROSENBAUM Unavailable Unavailable Fish, B Edelmira ROSENBAUM Unavailable Unavailable Fish, B Edelmira ROSENBAUM Unavailable Unavailable Fish, B Edelmira ROSENBAUM Unavailable Unavailable Fish, B Edelmira ROSENBAUM Unavailable Unavailable Fish, B Edelmira ROSENBAUM Unavailable Unavailable Bhatti, M Barratt PA Unavailable Unavailable Bhatti, M Barratt PA Unavailable Unavailable Bhatti, M Barratt PA Unavailable Unavailable Bhatti, M Barratt PA Unavailable Unavailable Bhatti, M Barratt PA Unavailable Unavailable Bhatti, M Barratt PA Unavailable Unavailable Bhatti, M Barratt PA Unavailable Unavailable Bhatti, M Barratt PA Unavailable Unavailable Bhatti, M Barratt PA Unavailable Unavailable Bhatti, M Barratt PA Unavailable Unavailable Bhatti, M Barratt PA Unavailable Unavailable Bhatti, M Barratt PA Unavailable Unavailable Bhatti, M Barratt PA Unavailable Unavailable Bhatti, M Barratt PA Unavailable Unavailable Bhatti, M Barratt PA Unavailable Unavailable Bhatti, M Barratt PA Unavailable Unavailable Bhatti, M Barratt PA Unavailable Unavailable Bhatti, M Barratt PA Unavailable Unavailable Bhatti, M Barratt PA Unavailable Unavailable Bhatti, M Barratt PA Unavailable Unavailable Bhatti, Cuba Roy PA Unavailable Unavailable Bhatti, Cuba Nelsonatt PA Unavailable Unavailable Bhatti, Cuba Nelsonatt PA Unavailable Unavailable Bhatti, Cuba Nelsonatt PA Unavailable Unavailable Bhatti, Cuba Nelsonatt PA Unavailable Unavailable Bhatti, Cuba Nelsonatt PA Unavailable Unavailable Bhatti, Cuba Barratt PA Unavailable Unavailable COOK, B ORIANA TANKAGE GRINDER Unavailable Unavailable COOK, B ORIANA TANKAGE GRINDER Unavailable Unavailable COOK, B ORIANA TANKAGE GRINDER Unavailable Unavailable COOK, B ORIANA TANKAGE GRINDER Unavailable Unavailable COOK, B ORIANA TANKAGE GRINDER Unavailable Unavailable COOK, B ORIANA TANKAGE GRINDER Unavailable Unavailable COOK, B ORIANA TANKAGE GRINDER Unavailable Unavailable COOK, B ORIANA TANKAGE GRINDER Unavailable Unavailable COOK, B ORIANA TANKAGE GRINDER Unavailable Unavailable COOK, B ORIANA TANKAGE GRINDER Unavailable Unavailable COOK, B ORIANA TANKAGE GRINDER Unavailable Unavailable COOK, B ORIANA TANKAGE GRINDER Unavailable Unavailable COOK, B ORIANA TANKAGE GRINDER Unavailable Unavailable COOK, B ORIANA TANKAGE GRINDER Unavailable Unavailable COOK, B ORIANA TANKAGE GRINDER Unavailable Unavailable COOK, B ORIANA TANKAGE GRINDER Unavailable Unavailable COOK, B ORIANA TANKAGE GRINDER Unavailable Unavailable COOK, B ORIANA TANKAGE GRINDER Unavailable Unavailable COOK, B ORIANA TANKAGE GRINDER Unavailable Unavailable COOK, B ORIANA TANKAGE GRINDER Unavailable Unavailable COOK, B ORIANA TANKAGE GRINDER Unavailable Unavailable COOK, B ORIANA TANKAGE GRINDER Unavailable Unavailable COOK, B ORIANA TANKAGE GRINDER Unavailable Unavailable COOK, B ORIANA TANKAGE GRINDER Unavailable Unavailable COOK, B ORIANA TANKAGE GRINDER Unavailable Unavailable COOK, B ORIANA TANKAGE GRINDER Unavailable Unavailable COOK, B ORIANA TANKAGE GRINDER Unavailable Unavailable COOK, B ORIANA TANKAGE GRINDER Unavailable Unavailable COOK, B ORIANA TANKAGE GRINDER Unavailable Unavailable COOK, B ORIANA TANKAGE GRINDER Unavailable Unavailable COOK, B ORIANA TANKAGE GRINDER Unavailable Unavailable COOK, B ORIANA TANKAGE GRINDER Unavailable Unavailable COOK, B ORIANA TANKAGE GRINDER Unavailable Unavailable COOK, B ORIANA TANKAGE GRINDER Unavailable Unavailable COOK, B ORIANA TANKAGE GRINDER Unavailable Unavailable COOK, B ORIANA TANKAGE GRINDER Unavailable Unavailable COOK, B ORIANA TANKAGE GRINDER Unavailable Unavailable COOK, B ORIANA TANKAGE GRINDER Unavailable Unavailable COOK, B ORIANA TANKAGE GRINDER Unavailable Unavailable COOK, B ORIANA TANKAGE GRINDER Unavailable Unavailable COOK, B ORIANA TANKAGE GRINDER Unavailable Unavailable COOK, B ORIANA TANKAGE GRINDER Unavailable Unavailable COOK, B ORIANA TANKAGE GRINDER Unavailable Unavailable COOK, B ORIANA TANKAGE GRINDER Unavailable Unavailable COOK, B ORIANA TANKAGE GRINDER Unavailable Unavailable COOK, B ORIANA TANKAGE GRINDER Unavailable Unavailable COOK, B ORIANA TANKAGE GRINDER Unavailable Unavailable COOK, B ORIANA TANKAGE GRINDER Unavailable Unavailable COOK, B ORIANA TANKAGE GRINDER Unavailable Unavailable COOK, B ORIANA TANKAGE GRINDER Unavailable Unavailable COOK, B ORIANA TANKAGE GRINDER Unavailable Unavailable COOK, B ORIANA TANKAGE GRINDER Unavailable Unavailable COOK, B ORIANA TANKAGE GRINDER Unavailable Unavailable COOK, B ORIANA TANKAGE GRINDER Unavailable Unavailable COOK, B ORIANA TANKAGE GRINDER Unavailable Unavailable COOK, B ORIANA TANKAGE GRINDER Unavailable Unavailable COOK, B ORIANA TANKAGE GRINDER Unavailable Unavailable COOK, B ORIANA TANKAGE GRINDER Unavailable Unavailable COOK, B ORIANA TANKAGE GRINDER Unavailable Unavailable COOK, B ORIANA TANKAGE GRINDER Unavailable Unavailable COOK, B ORIANA TANKAGE GRINDER Unavailable Unavailable COOK, B ORIANA TANKAGE GRINDER Unavailable Unavailable COOK, B ORIANA TANKAGE GRINDER Unavailable Unavailable COOK, B ORIANA TANKAGE GRINDER Unavailable Unavailable Re-disclosure Warning The records that you are about to access may contain information from federally-assisted alcohol or drug abuse programs. If such information is present, then the following federally mandated warning applies: This information has been disclosed to you from records protected by federal confidentiality rules (42 CFR part 2). The federal rules prohibit you from making any further disclosure of this information unless further disclosure is expressly permitted by the written consent of the person to whom it pertains or as otherwise permitted by 42 CFR part 2. A general authorization for the release of medical or other information is NOT sufficient for this purpose. The Federal rules restrict any use of the information to criminally investigate or prosecute any alcohol or drug abuse patient.The records that you are about to access may contain highly sensitive health information, the redisclosure of which is protected by Article 27-F of the [facility] Public Health law. If you continue you may have access to information: Regarding HIV / AIDS; Provided by facilities licensed or operated by the [facility] Office of Mental Health; or Provided by the [facility] Office for People With Developmental Disabilities. If such information is present, then the following [facility] mandated warning applies: This information has been disclosed to you from confidential records which are protected by state law. State law prohibits you from making any further disclosure of this information without the specific written consent of the person to whom it pertains, or as otherwise permitted by law. Any unauthorized further disclosure in violation of state law may result in a fine or long-term sentence or both. A general authorization for the release of medical or other information is NOT sufficient authorization for further disc losure. Allergies and Adverse Reactions Type Description Substance Reaction Status Data Source(s ) Allergy to substance No Known Allergies No known allergies (situation ) LAMBERTO (Jeffrey Bullock MD [facility]) Drug Allergy Drug Allergy NKDA [facility] ([facility] Family History Family Member Name Family Member Gender Family Member Status Date o f Status Description Data Source(s) Unknown Male Problem [facility]ENT ([facility]) Encounters Encounter Providers Location Date Indications Data Source(s ) Unknown [address] [facility] [id number] 09/04/2020 12:00:00 AM EST eCW1 ([facility]) Unknown [address] [facility] [address] 09/02/2020 12:00:00 AM EST eCW1 ([facility]) OFFICE OUTPATIENT VISIT 15 MINUTES Attender: Kirill RODRIGUEZ Physical Therapy 08/29/2020 01:00:00 PM EST MEDENT ([facility]) Outpatient [address] [facility] [address] 07/16/2020 12:00:00 AM EST eCW1 ([facility]) Unknown [address] [facility] [address] 06/24/2020 12:00:00 AM EST eCW1 ([facility]) Outpatient [address] [facility] [id number] 01/24/2020 12:00:00 AM EDT eCW1 ([facility]) [facility] Flak[address] Pan [address] [place] [address] 01/22/2020 12:00:00 AM EDT eCW1 ([facility]) Unknown [address] [facility] [address] 01/10/2020 12:00:00 AM EDT eCW1 ([facility]) Outpatient Attender: ORIANA HOYT NP Physical Therapy 11/28/2019 1 1:30:00 AM EDT MEDENT ([facility]) [facility] [address] Pan [address] [place] [address] 09/07/2019 12:00:00 AM EST eCW1 ([facility]) Outpatient Attender: Radha RODRIGUEZ Main Office 08/30/2019 01:30:0 0 PM EST MEDENT ([facility]) Outpatient Attender: Edelmira Price MD Physical Therapy 08/29 12:30:00 PM EST MEDENT ([facility] ) Outpatient<td ID="encounterTypeDescripti onID0">IOP CHECK</td><td>Jeffrey Bullock MD, FACS</td><td>Jeffrey Up MD [facility]</td><td>08/25/2019</td><td><content ID="encounterDiagnosisID0-0">Borderline Glaucoma Open Angle with Borderline Findings Both Eyes</content></td> Attender: Jeffrey Bullock MD, FACS Jeffrey Up MD [facility] 08/25/2019 09:14:00 AM EST - 08/25/2019 10:21:00 AM EST Borderline Glaucoma Open Angle with Bord lo Findings Both Eyes LAMBERTO (Jeffrey Bullock MD [facility]) Borderline Glaucoma Open Angle with Bord lo Findings Both Eyes [address] [address] 07/27/2019 12:00:00 AM EST eCW1 ([facility]) [address] [address] 07/27/2019 12:00:00 AM EST eCW1 ([facility]) Immunizations Vaccine Date Status Description Data Source(s) pneumococcal polysaccharide PPV23 07/16/2020 11:38:00 AM EST comple kurtis eCW1 ([facility]) pneumococcal polysaccharide PPV23 07/16/2020 11:38:00 AM EST comple kurtis eCW1 ([facility]) pneumococcal polysaccharide PPV23 07/16/2020 11:38:00 AM EST comple kurtis eCW1 ([facility]) influenza, recombinant, quadrIvalent,injectable, prese rvative free 07/16/2020 11:37:00 AM EST completed eCW1 ([facility]) influenza, recombinant, quadrIvalent,injectable, prese rvative free 07/16/2020 11:37:00 AM EST completed eCW1 ([facility]) influenza, recombinant, quadrIvalent,injectable, prese rvative free 07/16/2020 11:37:00 AM EST completed eCW1 ([facility]) Medications Medication Brand Name Start Date Product Form Dose Route Admi nistrative Instructions Pharmacy Instructions Status Indications Reaction Description Data Source(s) zoledronic acid 0.05 MG/ML Injectable Solution Zoledronic Ac id 09/14/2019 12:00:00 AM EST active M EDENT ([facility]) dorzolamide 20 MG/ML Ophthalmic Solution Dorzolamide HCL 08/29/2019 12:00:00 AM EST active MEDENT ([facility]) Ergocalciferol 2000 UNT Oral Tablet Vitamin D2 08/29/2019 12:00:00 AM EST ORAL active MEDENT ([facility]) Insurance Providers Payer name Policy type / Coverage type Policy ID Covered libertarian ID Covered libertarian's relationship to copeland Policy Cop[place] Plan Information WELLCARE [id number] SP [id number] WELLCARE [id number] SP [id number] MEDICARE COMPLETE [id number] SP [id number] WELLCARE [id number] SP [id number] MEDICARE COMPLETE [id number] SP [id number] MEDICARE COMPLETE [id number] SP [id number] MEDICARE COMPLETE-[facility] O [id number] S [id number] MEDICARE COMPLETE [id number] SP [id number] [facility]-Medicare Solutions Commercial [id number] Self [id number] [facility]-Medicare Part B [id number] ANSI-Medicare Part B [id number] ANSI-Medicare Part B [id number] [facility]-Medicare Solutions Commercial [id number] Self [id number] [facility]-Medicare Solutions Commercial [id number] Self [id number] [facility]-Medicare Solutions Commercial [id number] Self [id number] ANSI-Medicare Part B [id number] ANSI-Medicare Part B [id number] ANS-Medicare Part B [id number] ANSI-Medicare Part B [id number] ANS-Medicare Part B [id number] ANSI-Medicare Part B [id number] MEDICARE COMPLETE [id number] SP [id number] MEDICARE COMPLETE [id number] SP [id number] MEDICARE COMPLETE [id number] SP [id number] SELF PAY UNAVAILABLE SP UNAVAILA BLE Problems, Conditions, and Diagnoses Code Display Name Description Problem Type Effective Dates Data Source(s) G89.29 [id number] Other chronic pain Problem 09/02/2020 12:00: 00 AM EST eCW1 ([facility]) 3672347 Aortic valve disorder Aortic valve disorder Problem 08/30/2019 12:00:00 AM EST MEDENT ([facility]) J45.20 [id number] Mild intermittent asthma, uncomplicated P roblem 07/27/2019 12:00:00 AM EST eCW1 ([facility]) J45.20 [id number] Mild intermittent asthma, uncomplicated P roblem 07/27/2019 12:00:00 AM EST eCW1 ([facility]) Surgeries/Procedures Procedure Description Date Indications Data Source(s) PNEUMOCOCCAL POLYSAC VACCINE 23-V 2 />YR SUBQ/IM 07/16 12:00:00 AM EST eCW1 ([facility]) Immunization: Flublok Quadrivalent (18 years & older) 0.5mL IM (Influenza) 07/16/2020 12:00:00 AM [facility] IV INFUSION THERAPY/PROPHYLAXIS /DX 1ST TO 1 HR 2019 12:00:00 AM EST MEDENT ([facility]) VENIPUNCT, ROUTINE* 09/07/2019 12:00:00 AM EST eCW1 ([facility]) ECG ROUTINE ECG W/LEAST 12 LDS W/I&R 08/30/2019 12:00: 00 AM EST MEDENT ([facility]) Reported medical history possible valley fever 2004 R eported medical history possible valley fever 200408/25/2019 12:00:00 AM EST GREENW AY (Jeffrey Bullock MD [facility]) History of asthma History of asthma 08/25/2019 12:00:00 AM EST LAMBERTO (Jeffrey Bullock MD [facility]) Surgical / procedural history kidney stones 2014, Manju gical / procedural history kidney stones 2015, 08/25/2019 12:00:00 AM EST LAMBERTO (Da rico Bullock MD [facility]) Intermediate Eye Exam Established Patient Intermediate Eye Exam Established Patient 08/25/2019 12:00:00 AM EST LAMBERTO (Jose Carlos Bullock MD [facility]) Results ID Date Data Source [id number] 09/18/2020 12:00:00 PM EST [place] Name Value Range Interpretation Code Description Data Nancy rce(s) Supporting Document(s) SARS coronavirus 2 RNA Not Detected [facility] [place] This lab was ordered by [facility] and reported by [facility]. ID Date Data Source [id number] 09/11/2020 01:00:00 PM EST MEDENT ([facility]) Name Value Range Interpretation Code Description Data Nancy rce(s) Supporting Document(s) Calcidiol [Mass/volume] in Serum or Plasma 40.5 ng/mL 30.0-100.0 MEDENT ([facility]) <content>note:<nlbl:demographic_changed></content>
<content>note:<nlbl:demog raphic_changed></content>
<content></content> ID Date Data Source [id number] 09/11/2020 01:00:00 PM EST MEDENT ([facility]) Name Value Range Interpretation Code Description Data Nancy rce(s) Supporting Document(s) Thyroid Stimulating Hormone 2.160 uIU/ML 0.358-3.740 MEDENT ([facility]) Free T4 0.70 ng/dL 0.76-1.46 [facility] ([facility]) ID Date Data Source [id number] 09/11/2020 01:00:00 PM EST MEDENT ([facility]) Name Value Range Interpretation Code Description Data Nancy rce(s) Supporting Document(s) Triglycerides Level 182 mg/dL [facility]) LDL Cholesterol 74 mg/dL MEDENT ([facility]) HDL Cholesterol 53 mg/dL MEDENT ([facility]) Cholesterol Level 163 mg/dL [facility]) Cholesterol Risk Ratio 3.075 MEDENT ([facility]) Non-HDL-C 110 mg/dL MEDENT ([facility]) ID Date Data Source [id number] 09/11/2020 01:00:00 PM EST MEDENT ([facility]) Name Value Range Interpretation Code Description Data Nancy rce(s) Supporting Document(s) Glucose, Fasting 100 mg/dL 70-100 MEDENT ([facility]) Blood Urea Nitrogen 14 mg/dL 7-18 [facility] ([facility]) Creatinine For GFR 1.22 mg/dL 0.55-1.30 MEDENT ([facility]) Glomerular Filtration Rate 46.4 MED ENT ([facility]) <content>Units are mL/min/1.73 m2</content>
<content></content>
<content>Chronic Kidney Disease Staging per NKF:</content>
<content></content>
<content>Stage I & II GFR >=60 Normal to Mildly Decreased</content>
<content>Stage III GFR 30- 59 Moderately Decreased</content>
<content>Stage IV GFR 15-29 Severely Decreased</content>
<content>Stage V GFR <15 Very Little GFR Left</content>
<content>ESRD GFR <15 on BROADBAND INSTALLER</content>
<content></content> Sodium Level 142 meq/L 136-145 MEDENT ([facility]) Potassium Serum 4.4 meq/L 3.5-5.1 MEDENT ([facility]) Chloride Level 106 meq/L 98-107 MEDENT ([facility]) Carbon Dioxide Level 30 meq/L 21-32 [facility] ([facility]) Anion Gap 6 meq/L 8-16 MEDENT ([facility]) Calcium Level 10.7 mg/dL 8.8-10.2 [facility] ([facility] [facility] Alkaline Phosphatase 60 U/L 45-117 [facility] ([facility]) Ast/Sgot 17 U/L 7-37 [facility] ([facility]) Alt/SGPT 21 U/L 12-78 [facility] ([facility]) Total Protein 7.5 GM/DL 6.4-8.2 [facility] ([facility]) Bilirubin,Total 0.4 mg/dL 0.2-1.0 [facility] ([facility]) Albumin 4.2 GM/DL 3.2-5.2 [facility] ([facility]) Albumin/Globulin Ratio 1.3 1.2-2.2 [facility] ([facility]) ID Date Data Source [id number] 09/11/2020 01:00:00 PM EST MED[facility] ([facility]) Name Value Range Interpretation Code Description Data Nancy rce(s) Supporting Document(s) White Blood Count 7.7 10 4.0-10.0 [facility] ([facility]) Red Blood Count 4.70 10 4.00-5.40 MED[facility] ([facility]) Mean Corpuscular Volume 92.6 fl 80.0-96.0 M EDENT ([facility]) Hematocrit 43.5 % 36.0-47.0 [facility] Hemoglobin 14.0 g/dL 12.0-15.5 [facility] ([facility]) Mean Corpuscular Hemoglobin 29.8 pg 27.0-33.0 [facility] ([facility]) Red Cell Distribution Width 12.5 % 11.5-14.5 [facility] ([facility]) Mean Corpuscular HGB Conc 32.2 g/dL 32.0-36.5 [facility] ([facility]) Neutrophils % 63.0 % 36.0-66.0 [facility]) Platelet Count, Automated 259 10 150-450 MED[facility] ([facility]) [place] % 6.0 % 0.0-5.0 [facility] Eos % 2.7 % 0.0-3.0 [facility] Lymph % 27.7 % 24.0-44.0 [facility] Immature Granulocyte % 0.1 % 0-3.0 [facility] ([facility]) Baso % 0.5 % 0.0-1.0 [facility]) Nucleated Red Blood Cell % 0.0 % 0-0 MED ENT ([facility]) Lymph # 2.1 10 1.5-5.0 [facility] Neutrophils # 4.9 10 1.5-8.5 [facility] ([facility] [place] # 0.5 10 0.0-0.8 [facility] ([facility] Eos # 0.2 10 0.0-0.5 [facility] ([facility] Baso # 0.0 10 0.0-0.2 [facility]) ID Date Data Source CARLOS SHOULDER COMPLETE 07/16/2020 12:00:00 AM EST eCW1 ([facility]) Name Value Range Interpretation Code Description Data Nancy rce(s) Supporting Document(s) CARLOS SHOULDER COMPLETE eCW1 ([facility]) ID Date Data Source [id number] 12/05/2019 04:01:00 PM EDT [facility] ([facility]) Name Value Range Interpretation Code Description Data Nancy rce(s) Supporting Document(s) Glucose, Fasting 92 mg/dL 70-100 MED[facility] ([facility]) Blood Urea Nitrogen 15 mg/dL 7-18 [facility] ([facility]) Glomerular Filtration Rate 53.5 MED ENT ([facility]) <content>Units are mL/min/1.73 m2</content>
<content></content>
<content>Chronic Kidney Disease Staging per NKF:</content>
<content></content>
<content>Stage I & II GFR >=60 Normal to Mildly Decreased</content>
<content>Stage III GFR 30- 59 Moderately Decreased</content>
<content>Stage IV GFR 15-29 Severely Decreased</content>
<content>Stage V GFR <15 Very Little GFR Left</content>
<content>ESRD GFR <15 on BROADBAND INSTALLER</content>
<content></content> Creatinine For GFR 1.08 mg/dL 0.55-1.30 MED[facility] ([facility]) Potassium Serum 4.5 meq/L 3.5-5.1 [facility] ([facility]) Sodium Level 141 meq/L 136-145 [facility] ([facility]) Chloride Level 109 meq/L 98-107 [facility] ([facility]) Carbon Dioxide Level 26 meq/L 21-32 [facility] ([facility]) Anion Gap 6 meq/L 8-16 [facility] ([facility]) Calcium Level 9.2 mg/dL 8.8-10.2 [facility] ([facility]) ID Date Data Source [id number] 09/07/2019 07:45:00 AM EST MED[facility] ([facility]) Name Value Range Interpretation Code Description Data Nancy rce(s) Supporting Document(s) Calcium [Mass/volume] in Serum or Plasma 9.2 mg/dL 8.8-10.2 MED[facility] ([facility]) <content>note:<nlbl:[email or web address]_changed> </content>
<content></content> ID Date Data Source [id number] 07/25/2019 08:37:00 AM EST [facility] ([facility] Name Value Range Interpretation Code Description Data Nancy rce(s) Supporting Document(s) Thyrotropin [Units/volume] in Serum or Plasma 2.210 [facility] ([facility]) ID Date Data Source [id number] 07/25/2019 08:37:00 AM EST [facility] ([facility] Name Value Range Interpretation Code Description Data Nancy rce(s) Supporting Document(s) Triglycerides 89 [facility] ([facility]) HDL 60 [facility] ([facility] Cholesterol 154 [facility] ([facility]) Cholesterol in LDL [Mass/volume] in Serum or Plasma by calculation 76 [facility] ([facility]) Chol/HDL Ratio 2.566 [facility] ([facility]) ID Date Data Source [id number] 07/25/2019 08:37:00 AM EST [facility] Name Value Range Interpretation Code Description Data Nancy rce(s) Supporting Document(s) Alanine aminotransferase [Enzymatic activity/volume] in Serum or Pl asma 19 [facility] ([facility]) Albumin [Mass/volume] in Serum or Plasma 3.7 [facility] ([facility]) Chloride [Moles/volume] in Serum or Plasma 109 [facility] ([facility]) Carbon dioxide, total [Moles/volume] in Serum or Plasma 28 [facility] ([facility]) Calcium [Mass/volume] in Serum or Plasma 9.0 [facility] ([facility]) Alkaline phosphatase [Enzymatic activity/volume] in Serum or Plasma 6 0 [facility] ([facility]) Potassium [Moles/volume] in Serum or Plasma 4.4 [facility] ([facility]) Protein [Mass/volume] in Serum or Plasma 7.0 [facility] ([facility]) Sodium 142 [facility] ([facility] Aspartate aminotransferase [Enzymatic activity/volume] in Serum or Plasma 18 [facility] ([facility]) Glucose 87 70-100 [facility] ([facility] Urea nitrogen [Mass/volume] in Serum or Plasma 17 [facility] ([facility]) Creatinine For GFR 0.98 [facility] ([facility]) ID Date Data Source [id number] 07/25/2019 08:37:00 AM EST [facility] ([facility]) Name Value Range Interpretation Code Description Data Nancy rce(s) Supporting Document(s) White Blood Count 6.2 4.0-10.0 [facility] ([facility]) Red Blood Count 4.37 4.00-5.40 [facility] ([facility]) Hemoglobin 13.0 [facility] ([facility]) Platelets 252 150-450 [facility] ([facility]) Hematocrit 40.1 [facility] ([facility]) Procedure Social History Code Duration Value Status Description Data Source(s ) Smoking 07/16/2020 12:00:00 AM EST Never Smoker completed Never S moker eCW1 ([facility]) Smoking 07/16/2020 12:00:00 AM EST Never Smoker completed Never S moker eCW1 ([facility]) Smoking 07/16/2020 12:00:00 AM EST Never Smoker completed Never S moker eCW1 ([facility]) Smoking 02/25/2020 12:00:00 AM EDT Never Smoker completed Never S moker eCW1 ([facility]) Smoking 02/25/2020 12:00:00 AM EDT Never Smoker completed Never S moker eCW1 ([facility]) Smoking 11/28/2019 12:00:00 AM EDT Never Smoked Cigarettes com pleted Never Smoked Cigarettes [facility] ([facility]) Smoking 08/28/2019 08:16:42 AM EST Never smoked tobacco (findi ng) completed Never smoked tobacco (finding) LAMBERTO (Jeffrey Bullock MD [facility]) Smoking 07/27/2019 12:00:00 AM EST Never Smoker completed Never S moker eCW1 ([facility]) Vital Signs ID Date Data Source UNK Name Value Range Interpretation Code Description Data Source(s) Diastolic blood pressure 74 mm[Hg] 74 mm[Hg] eCW1 ([facility]) Systolic blood pressure 146 mm[Hg] 146 mm[Hg] e CW1 ([facility]) Body temperature 98.6 [degF] 98.6 [degF] eCW1 ( [facility]) Respiratory rate 18 /min 18 /min eCW1 ([facility]) Heart rate 70 /min 70 /min eCW1 ([facility]) Body mass index (BMI) [Ratio] 21.87 kg/m2 21.87 kg/m2 eCW1 ([facility]) Body height [in_i] eCW1 ([facility]) Body weight [lb_av] eCW1 ([facility]) Diastolic blood pressure 79 mm[Hg] 79 mm[Hg] eCW1 ([facility]) Systolic blood pressure 142 mm[Hg] 142 mm[Hg] e CW1 ([facility]) Body temperature 98.1 [degF] 98.1 [degF] eCW1 ( [facility]) Respiratory rate 18 /min 18 /min eCW1 ([facility]) Heart rate 57 /min 57 /min eCW1 ([facility]) Body mass index (BMI) [Ratio] 22.07 kg/m2 22.07 kg/m2 eCW1 ([facility]) Body height [in_i] eCW1 ([facility]) Body weight [lb_av] eCW1 ([facility]) Oxygen saturation in Arterial blood by Pulse oximetry 98 % 98 % MED[facility] ([facility] Body mass index (BMI) [Ratio] 20.5 kg/m2 20.5 k g/m2 MED[facility] ([facility] Body weight 110.12 [lb_av] 110.12 [lb_av] MEDEN T ([facility] ) Body height 61.5 [in_i] 61.5 [in_i] MED[facility] ([facility]) 5'1.50" Heart rate 68 /min 68 /min MED[facility] ([facility]) Diastolic blood pressure 74 mm[Hg] 74 mm[Hg] MED[facility] ([facility]) Systolic blood pressure 118 mm[Hg] 118 mm[Hg] M EDENT ([facility] Diastolic blood pressure--sitting 58 mm[Hg] 58 mm[Hg] MED[facility] ([facility]) adult cuff, Ra Systolic blood pressure--sitting 106 mm[Hg] 106 mm[Hg] [facility] ([facility]) adult cuff, Ra Heart rate 64 /min 64 /min [facility] ([facility]) Body mass index (BMI) [Ratio] 28.1 kg/m2 28.1 k g/m2 MED[facility] ([facility]) Body height 52.5 [in_i] 52.5 [in_i] [facility] ([facility]) 4'4.50" Body weight 110.00 [lb_av] 110.00 [lb_av] MEDEN T ([facility]) Body height 61.5 [in_i] 61.5 [in_i] MEDENT ([facility] 5'1.50" Heart rate 61 /min 61 /min MED[facility] ([facility] ) Diastolic blood pressure 62 mm[Hg] 62 mm[Hg] MED[facility] ([facility] ) Systolic blood pressure 112 mm[Hg] 112 mm[Hg] M EDJOSE ([facility] ) Oxygen saturation in Arterial blood by Pulse oximetry 97 % 97 % MEDENT ([facility] ) Body mass index (BMI) [Ratio] 20.9 kg/m2 20.9 k g/m2 MED[facility] ([facility] Body weight 112.50 [lb_av] 112.50 [lb_av] MEDEN T ([facility] )
[2020-09-23] MEDS ORDERED: BSS IRR 500ML/OMIDRIA 4ML IRR BAG (OR ONLY) As Ordered ONE (10:24)
[2020-09-23] MEDS ORDERED: DUOVISC (0.50ML VISCOAT/0.55ML PROVISC) OPHTH KIT As Ordered ONE (10:25)
[2020-09-23] MEDS ORDERED: MIDAZOLAM INJ 2MG/2ML VIAL (J2250 PER 1MG) As Ordered ONE (10:32)
[2020-09-23] MEDS ORDERED: fentaNYL 100 MCG/2 ML INJECTION (J3010) As Ordered ONE (10:32)
[2020-09-23 11:54] VITALS: BP 155/72
== END 2020-09-23 12:05 | disposition home or self-care (01) ==
LOC: M SDC 07:46
PROVIDERS: ATTEND Ophthalmology
DX: H25.12 Age-related nuclear cataract, left eye (principal); H40.1120 Primary open-angle glaucoma, left eye, stage unspecified; I10 Essential (primary) hypertension; Z86.73 Personal history of transient ischemic attack (TIA), and cerebral infarction without residual deficits; Z88.1 Allergy status to other antibiotic agents; Z79.899 Other long term (current) drug therapy; Z88.8 Allergy status to other drugs, medicaments and biological substances
CPT/HCPCS: 65820; 66174; 66984; 92015; J1097; J2250; J3010; V2632

== ENCOUNTER → 2020-10-09 | Outpatient (CLI) | payer MEDICARE ==
[~2020-10-09] MED LIST changes: -CEFUROXIME 1MG/0.1ML INTRACAMERAL INJ As Ordered ONE; -DUOVISC (0.50ML VISCOAT/0.55ML PROVISC) OPHTH KIT As Ordered ONE; -OFLOXACIN 0.3 % (OCUFLOX) OPTH SOL 5ML OS ONE; -PHENYLEPHRINE 2.5% OPHTH SOL 2ML OS ONE; -POVIDONE-IODINE 5% OPHTH PREP SOL 30ML As Ordered ONE; -PROPARACAINE 0.5% OPHTH SOL 15ML OS ONE; -TROPICAMIDE 1% OPHTH SOLN 2ML OS ONE
== END ==
LOC: M LABSMTC 10:34
PROVIDERS: ATTEND Anesthesiology
DX: Z01.812 Encounter for preprocedural laboratory examination (principal); Z20.822 Contact with and (suspected) exposure to COVID-19

== ENCOUNTER 2020-10-14 06:27 | Day surgery (SDC) | payer MEDICARE ==
[~2020-10-14] VITALS: Ht 157.5 cm; Wt 50.3 kg
[2020-10-14] MEDS ORDERED: DUOVISC (0.50ML VISCOAT/0.55ML PROVISC) OPHTH KIT As Ordered ONE ×2 (06:42→08:22)
[2020-10-14] MEDS ORDERED: POVIDONE-IODINE 5% OPHTH PREP SOL 30ML As Ordered ONE (06:42)
[2020-10-14] MEDS ORDERED: CEFUROXIME 1MG/0.1ML INTRACAMERAL INJ As Ordered ONE (06:42)
[2020-10-14] MEDS ORDERED: OFLOXACIN 0.3 % (OCUFLOX) OPTH SOL 5ML OD ONE (07:00)
[2020-10-14] MEDS ORDERED: PROPARACAINE 0.5% OPHTH SOL 15ML OD ONE (07:00)
[2020-10-14] MEDS ORDERED: TROPICAMIDE 1% OPHTH SOLN 2ML OD ONE (07:00)
[2020-10-14] MEDS ORDERED: PHENYLEPHRINE 2.5% OPHTH SOL 2ML OD ONE (07:00)
[2020-10-14] MEDS ORDERED: MIDAZOLAM INJ 2MG/2ML VIAL (J2250 PER 1MG) As Ordered ONE (07:41)
[2020-10-14] MEDS ORDERED: fentaNYL 100 MCG/2 ML INJECTION (J3010) As Ordered ONE (07:41)
[2020-10-14] MEDS ORDERED: BSS IRR 500ML/OMIDRIA 4ML IRR BAG (OR ONLY) As Ordered ONE (07:58)
[2020-10-14 08:50] VITALS: BP 98/54
== END 2020-10-14 09:50 | disposition home or self-care (01) ==
LOC: M SDC 06:27
PROVIDERS: ATTEND Ophthalmology
DX: H25.11 Age-related nuclear cataract, right eye (principal); H40.1110 Primary open-angle glaucoma, right eye, stage unspecified; I10 Essential (primary) hypertension; Z86.73 Personal history of transient ischemic attack (TIA), and cerebral infarction without residual deficits; Z79.899 Other long term (current) drug therapy; Z88.8 Allergy status to other drugs, medicaments and biological substances; Z88.1 Allergy status to other antibiotic agents
CPT/HCPCS: 65820; 66174; 66984; 92015; J1097; J2250; J3010; V2632

== ENCOUNTER → 2020-11-07 | Outpatient (CLI) | payer MEDICARE ==
[2020-11-07 14:29] LABS: BLOOD UREA NITROGEN 16 MG/DL (7-18); CALCIUM LEVEL 9.5 MG/DL (8.8-10.2); CARBON DIOXIDE LEVEL 26 MEQ/L (21-32); CHLORIDE LEVEL 108 MEQ/L (98-107); CREATININE FOR GFR 0.94 MG/DL (0.55-1.30); GLOMERULAR FILTRATION RATE > 60.0 (>39); GLUCOSE, FASTING 91 MG/DL (70-100); POTASSIUM SERUM 4.4 MEQ/L (3.5-5.1); SODIUM LEVEL 142 MEQ/L (136-145)
== END ==
LOC: M WUC 10:58
PROVIDERS: ATTEND Internal Medicine Endocrinology, Diabetes & Metabolism
DX: M81.0 Age-related osteoporosis without current pathological fracture (principal)

== ENCOUNTER → 2020-12-18 | Outpatient (CLI) | payer MEDICARE ==
[2020-12-18 16:16] LABS: BASO # 0.1 10^3/uL (0.0-0.2); BASO % 0.6 % (0.0-1.0); EOS # 0.2 10^3/uL (0.0-0.5); EOS % 2.2 % (0.0-3.0); HEMATOCRIT 42.9 % (36.0-47.0); HEMOGLOBIN 13.9 g/dl (12.0-15.5); LYMPH # 2.5 10^3/uL (1.5-5.0); LYMPH % 30.4 % (24.0-44.0); MEAN CORPUSCULAR HEMOGLOBIN 29.7 pg (27.0-33.0); MEAN CORPUSCULAR HGB CONC 32.4 g/dl (32.0-36.5); MEAN CORPUSCULAR VOLUME 91.7 fl (80.0-96.0); MONO # 0.5 10^3/uL (0.0-0.8); MONO % 6.6 % (2.0-8.0); NEUTROPHILS # 4.9 10^3/uL (1.5-8.5); PLATELET COUNT, AUTOMATED 266 10^3/uL (150-450); RED BLOOD COUNT 4.68 10^6/uL (4.00-5.40); WHITE BLOOD COUNT 8.2 10^3/uL (4.0-10.0)
[2020-12-18 16:53] LABS: ALBUMIN 4.5 GM/DL (3.2-5.2); BILIRUBIN,TOTAL 0.9 MG/DL (0.2-1.0); CALCIUM LEVEL 9.6 MG/DL (8.8-10.2); CHOLESTEROL RISK RATIO 2.569 (<5); CREATININE FOR GFR 1.22 MG/DL (0.55-1.30); FREE T4 0.74 NG/DL (0.76-1.46); GLOMERULAR FILTRATION RATE 46.4 (>39); POTASSIUM SERUM 3.9 MEQ/L (3.5-5.1); THYROID STIMULATING HORMONE 1.5 uIU/ML (0.358-3.740); TOTAL PROTEIN 7.7 GM/DL (6.4-8.2)
[2020-12-18 16:54] LABS: TOTAL 25(OH) VITAMIN D 73.4 NG/ML (30.0-100.0)
== END ==
LOC: M WUC 14:22
PROVIDERS: ATTEND Physician Assistant
DX: I10 Essential (primary) hypertension (principal); E55.9 Vitamin D deficiency, unspecified; Z79.899 Other long term (current) drug therapy

== ENCOUNTER → 2021-02-03 | Outpatient (REF) | payer MEDICARE ==
[2021-02-03 17:09] LABS: CALCIUM LEVEL 9.4 MG/DL (8.8-10.2); CREATININE FOR GFR 1.07 MG/DL (0.55-1.30); POTASSIUM SERUM 4.2 MEQ/L (3.5-5.1)
[2021-02-03 17:20] LABS: TOTAL 25(OH) VITAMIN D 77.6 NG/ML (30.0-100.0)
== END ==
LOC: M WUC 16:27
PROVIDERS: ATTEND Internal Medicine Endocrinology, Diabetes & Metabolism
DX: M81.0 Age-related osteoporosis without current pathological fracture (principal); E55.9 Vitamin D deficiency, unspecified

== ENCOUNTER → 2021-06-18 | Outpatient (CLI) | payer MEDICARE ==
[~2021-06-18] MED LIST changes: +LOSA50TA28 PO; -LOSA50TA88 PO
[2021-06-18 10:41] LABS: BASO % 0.5 % (0.0-1.0); EOS # 0.3 10^3/uL (0.0-0.5); EOS % 3.1 % (0.0-3.0); HEMATOCRIT 45.8 % (36.0-47.0); HEMOGLOBIN 14.5 g/dl (12.0-15.5); LYMPH % 24.3 % (24.0-44.0); MEAN CORPUSCULAR HEMOGLOBIN 29.1 pg (27.0-33.0); MEAN CORPUSCULAR HGB CONC 31.7 g/dl (32.0-36.5); MONO # 0.5 10^3/uL (0.0-0.8); MONO % 5.5 % (2.0-8.0); NEUTROPHILS # 5.5 10^3/uL (1.5-8.5); NEUTROPHILS % 66.2 % (36.0-66.0); PLATELET COUNT, AUTOMATED 273 10^3/uL (150-450); RED BLOOD COUNT 4.98 10^6/uL (4.00-5.40); WHITE BLOOD COUNT 8.3 10^3/uL (4.0-10.0)
[2021-06-18 11:30] LABS: BILIRUBIN,TOTAL 0.8 MG/DL (0.2-1.0); CALCIUM LEVEL 9.4 MG/DL (8.8-10.2); CHOLESTEROL RISK RATIO 3.207 (<5); CREATININE FOR GFR 1.17 MG/DL (0.55-1.30); FREE T4 0.73 NG/DL (0.76-1.46); GLOMERULAR FILTRATION RATE 48.5 (>39); POTASSIUM SERUM 4.7 MEQ/L (3.5-5.1); THYROID STIMULATING HORMONE 2.37 uIU/ML (0.358-3.740); TOTAL PROTEIN 7.5 GM/DL (6.4-8.2)
== END ==
LOC: M WUC 08:19
PROVIDERS: ATTEND Physician Assistant
DX: E55.9 Vitamin D deficiency, unspecified (principal); I10 Essential (primary) hypertension; Z23 Encounter for immunization
CPT/HCPCS: 36415; 80053; 80061; 82306; 84439; 84443; 85025; 90682; G0008

== ENCOUNTER → 2021-12-04 | Outpatient (CLI) | payer MEDICARE ==
[2021-12-04 16:06] LABS: CALCIUM LEVEL 9.8 MG/DL (8.8-10.2); CREATININE FOR GFR 1.06 MG/DL (0.55-1.30); GLOMERULAR FILTRATION RATE 54.4 (>39); POTASSIUM SERUM 4.2 MEQ/L (3.5-5.1)
== END ==
LOC: M WUC 14:51
PROVIDERS: ATTEND Nurse Practitioner Family
DX: M81.0 Age-related osteoporosis without current pathological fracture (principal)

== ENCOUNTER → 2021-12-17 | Outpatient (CLI) | payer MEDICARE | LOC: M WHC 14:15 | PROVIDERS: ATTEND Internal Medicine Endocrinology, Diabetes & Metabolism | DX: M81.0 Age-related osteoporosis without current pathological fracture (principal); M85.851 Other specified disorders of bone density and structure, right thigh; M85.852 Other specified disorders of bone density and structure, left thigh ==

== ENCOUNTER → 2022-03-12 | Outpatient (CLI) | payer MEDICARE | LOC: M WUC 14:45 | PROVIDERS: ATTEND Physician Assistant | DX: M19.042 Primary osteoarthritis, left hand (principal) ==

== ENCOUNTER → 2022-06-18 | Outpatient (CLI) | payer MEDICARE | LOC: M RAD 15:10 | PROVIDERS: ATTEND Physician Assistant | DX: M19.042 Primary osteoarthritis, left hand (principal) ==

== ENCOUNTER → 2022-06-22 | Outpatient (REF) | payer MEDICARE ==
[2022-06-22 18:14] LABS: BASO % 0.5 % (0.0-1.0); EOS # 0.2 10^3/uL (0.0-0.5); EOS % 2.7 % (0.0-3.0); HEMATOCRIT 43.6 % (36.0-47.0); HEMOGLOBIN 13.5 g/dl (12.0-15.5); LYMPH # 2.1 10^3/uL (1.5-5.0); LYMPH % 24.8 % (24.0-44.0); MEAN CORPUSCULAR HEMOGLOBIN 29.3 pg (27.0-33.0); MEAN CORPUSCULAR VOLUME 94.6 fl (80.0-96.0); MONO # 0.5 10^3/uL (0.0-0.8); MONO % 5.4 % (2.0-8.0); NEUTROPHILS # 5.6 10^3/uL (1.5-8.5); NEUTROPHILS % 66.5 % (36.0-66.0); PLATELET COUNT, AUTOMATED 236 10^3/uL (150-450); RED BLOOD COUNT 4.61 10^6/uL (4.00-5.40); WHITE BLOOD COUNT 8.4 10^3/uL (4.0-10.0)
[2022-06-22 18:51] LABS: ALBUMIN 4.1 GM/DL (3.2-5.2); BILIRUBIN,TOTAL 0.7 MG/DL (0.2-1.0); CALCIUM LEVEL 9.5 MG/DL (8.8-10.2); CHOLESTEROL RISK RATIO 2.387 (<5); CREATININE FOR GFR 1.09 MG/DL (0.55-1.30); FREE T4 0.7 NG/DL (0.76-1.46); GLOMERULAR FILTRATION RATE 52.5 (>39); POTASSIUM SERUM 4.7 MEQ/L (3.5-5.1); THYROID STIMULATING HORMONE 2.02 uIU/ML (0.358-3.740); TOTAL PROTEIN 7.1 GM/DL (6.4-8.2)
[2022-06-22 19:29] LABS: TOTAL 25(OH) VITAMIN D 43.2 NG/ML (30.0-100.0)
== END ==
LOC: M SFHCCAPE 08:15
PROVIDERS: ATTEND Physician Assistant
DX: E55.9 Vitamin D deficiency, unspecified (principal); E78.00 Pure hypercholesterolemia, unspecified; Z79.899 Other long term (current) drug therapy

== ENCOUNTER → 2022-09-20 | Outpatient (CLI) | payer MEDICARE ==
[~2022-09-20] MED LIST changes: +AMLO1TAB25
== END ==
LOC: M LABSMTC 11:18
PROVIDERS: ATTEND Anesthesiology
DX: Z01.812 Encounter for preprocedural laboratory examination (principal); Z11.52 Encounter for screening for COVID-19

== ENCOUNTER 2022-09-24 10:18 | Day surgery (SDC) | payer MEDICARE ==
[~2022-09-24] VITALS: Ht 157.5 cm; Wt 49.0 kg
[~2022-09-24 10:18] MED LIST changes: +NS 1,000 ML IV ONE
[2022-09-24] MEDS ORDERED: OCUVCAP PO (10:39)
[2022-09-24] MEDS ORDERED: CALCTAB17 PO (10:39)
[2022-09-24] MEDS ORDERED: GLYCCAP PO (10:39)
[2022-09-24] MEDS ORDERED: LIDOCAINE 2% 100MG/5ML SDV (FOR ANES.) As Ordered ONE (11:04)
[2022-09-24] MEDS ORDERED: propofoL 200 MG/20 ML VIAL As Ordered ONE ×2 (11:04→11:41)
[2022-09-24 12:15] VITALS: BP 155/74
== END 2022-09-24 12:37 | disposition home or self-care (01) ==
LOC: M OPP 10:18
PROVIDERS: ATTEND Surgery
DX: Z86.010 Personal history of colon polyps (principal); K63.5 Polyp of colon; I51.7 Cardiomegaly; Z79.02 Long term (current) use of antithrombotics/antiplatelets; Z79.899 Other long term (current) drug therapy; Z87.442 Personal history of urinary calculi; Z86.73 Personal history of transient ischemic attack (TIA), and cerebral infarction without residual deficits

== ENCOUNTER 2022-11-20 19:58 | Emergency (ER) | payer MEDICARE ==
[~2022-11-20] VITALS: Ht 157.5 cm; Wt 53.6 kg
[~2022-11-20 19:58] MED LIST changes: +CALCTAB17 PO; +GLYCCAP PO; -NS 1,000 ML IV ONE; +OCUVCAP PO
[2022-11-20 23:03] VITALS: BP 163/77
== END 2022-11-20 23:06 | disposition home or self-care (01) ==
LOC: M ED 19:58
DX: S62.636A Displaced fracture of distal phalanx of right little finger, initial encounter for closed fracture (principal); W01.0XXA Fall on same level from slipping, tripping and stumbling without subsequent striking against object, initial encounter; Y92.019 Unspecified place in single-family (private) house as the place of occurrence of the external cause; Y93.01 Activity, walking, marching and hiking; Y99.8 Other external cause status; Z88.8 Allergy status to other drugs, medicaments and biological substances; Z79.899 Other long term (current) drug therapy

== ENCOUNTER → 2022-11-26 | Outpatient (CLI) | payer MEDICARE | LOC: M SOG 09:14 | PROVIDERS: ATTEND Physician Assistant | DX: M79.641 Pain in right hand (principal) ==

== ENCOUNTER → 2022-12-08 | Outpatient (CLI) | payer MEDICARE ==
[2022-12-08 19:58] LABS: CALCIUM LEVEL 9.4 MG/DL (8.3-10.6); CREATININE FOR GFR 0.99 MG/DL (0.55-1.30); GLOMERULAR FILTRATION RATE 58.7 (>39); POTASSIUM SERUM 4.5 MMOL/L (3.5-5.1)
[2022-12-08 20:02] LABS: TOTAL 25(OH) VITAMIN D 36.2 NG/ML (20.0-100.0)
== END ==
LOC: M WUC 15:14
PROVIDERS: ATTEND Internal Medicine Endocrinology, Diabetes & Metabolism
DX: M81.0 Age-related osteoporosis without current pathological fracture (principal); E55.9 Vitamin D deficiency, unspecified

== ENCOUNTER → 2022-12-10 | Outpatient (CLI) | payer MEDICARE | LOC: M SOG 08:37 | PROVIDERS: ATTEND Physician Assistant | DX: M19.041 Primary osteoarthritis, right hand (principal); S62.616A Displaced fracture of proximal phalanx of right little finger, initial encounter for closed fracture; X58.XXXA Exposure to other specified factors, initial encounter; Y92.9 Unspecified place or not applicable; Y93.9 Activity, unspecified; Y99.9 Unspecified external cause status ==

== ENCOUNTER → 2022-12-31 | Outpatient (CLI) | payer MEDICARE | LOC: M SOG 09:15 | PROVIDERS: ATTEND Physician Assistant | DX: S62.616D Displaced fracture of proximal phalanx of right little finger, subsequent encounter for fracture with routine healing (principal) ==

== ENCOUNTER → 2023-06-28 | Outpatient (CLI) | payer MEDICARE ==
[2023-06-28 18:10] LABS: BASO # 0.1 10^3/uL (0.0-0.2); BASO % 0.7 % (0.0-1.0); EOS # 0.2 10^3/uL (0.0-0.5); EOS % 2.2 % (0.0-3.0); HEMATOCRIT 45.7 % (36.0-47.0); HEMOGLOBIN 14.4 g/dl (12.0-15.5); LYMPH # 2.3 10^3/uL (1.5-5.0); LYMPH % 31.5 % (24.0-44.0); MEAN CORPUSCULAR HGB CONC 31.5 g/dl (32.0-36.5); MEAN CORPUSCULAR VOLUME 92.1 fl (80.0-96.0); MONO # 0.4 10^3/uL (0.0-0.8); MONO % 5.2 % (2.0-8.0); NEUTROPHILS # 4.3 10^3/uL (1.5-8.5); NEUTROPHILS % 60.1 % (36.0-66.0); PLATELET COUNT, AUTOMATED 258 10^3/uL (150-450); RED BLOOD COUNT 4.96 10^6/uL (4.00-5.40); WHITE BLOOD COUNT 7.2 10^3/uL (4.0-10.0)
[2023-06-28 18:37] LABS: ALBUMIN 4.2 G/DL (3.2-5.2); BILIRUBIN,TOTAL 0.8 MG/DL (0.3-1.2); CALCIUM LEVEL 9.7 MG/DL (8.3-10.6); CHOLESTEROL RISK RATIO 3.02 (<5); CREATININE FOR GFR 1.06 MG/DL (0.55-1.30); FREE T4 0.8 NG/DL (0.89-1.76); GLOMERULAR FILTRATION RATE 54.1 (>39); HDL CHOLESTEROL 59.5 MG/DL (>40); LDL CHOLESTEROL 98.7 MG/DL (<100); NON-HDL-C 120.5 MG/DL; POTASSIUM SERUM 4.3 MMOL/L (3.5-5.1); THYROID STIMULATING HORMONE 2.892 uIU/ML (0.55-4.78); TOTAL PROTEIN 7.4 G/DL (5.7-8.2)
== END ==
LOC: M WUC 13:18
PROVIDERS: ATTEND Physician Assistant Medical
DX: I10 Essential (primary) hypertension (principal); E78.00 Pure hypercholesterolemia, unspecified; E55.9 Vitamin D deficiency, unspecified

== ENCOUNTER → 2024-07-03 | Outpatient (REF) | payer MEDICARE ==
[2024-07-03 19:40] LABS: BASO # 0.1 10^3/uL (0.0-0.2); BASO % 0.7 % (0.0-1.0); EOS # 0.2 10^3/uL (0.0-0.5); EOS % 2.7 % (0.0-3.0); HEMATOCRIT 41.7 % (36.0-47.0); HEMOGLOBIN 13.3 g/dl (12.0-15.5); LYMPH # 2.2 10^3/uL (1.5-5.0); LYMPH % 31.7 % (24.0-44.0); MEAN CORPUSCULAR HGB CONC 31.9 g/dl (32.0-36.5); MONO # 0.4 10^3/uL (0.0-0.8); MONO % 5.5 % (2.0-8.0); NEUTROPHILS # 4.1 10^3/uL (1.5-8.5); NEUTROPHILS % 59.1 % (36.0-66.0); PLATELET COUNT, AUTOMATED 235 10^3/uL (150-450); RED BLOOD COUNT 4.58 10^6/uL (4.00-5.40); WHITE BLOOD COUNT 6.9 10^3/uL (4.0-10.0)
[2024-07-03 20:13] LABS: THYROID STIMULATING HORMONE 2.662 uIU/ML (0.55-4.78)
[2024-07-03 20:14] LABS: CHOLESTEROL RISK RATIO 2.76 (<5); HDL CHOLESTEROL 57.2 MG/DL (>40); NON-HDL-C 100.8 MG/DL
[2024-07-03 20:16] LABS: FREE T4 0.81 NG/DL (0.89-1.76)
[2024-07-03 20:18] LABS: BILIRUBIN,TOTAL 0.9 MG/DL (0.3-1.2); CALCIUM LEVEL 9.7 MG/DL (8.3-10.6); CREATININE FOR GFR 1.02 MG/DL (0.55-1.30); GLOMERULAR FILTRATION RATE 56.4 (>39); POTASSIUM SERUM 4.4 MMOL/L (3.5-5.1); TOTAL PROTEIN 7.1 G/DL (5.7-8.2)
== END ==
LOC: M SFHCCAPE 14:05
PROVIDERS: ATTEND Physician Assistant Medical
DX: E03.9 Hypothyroidism, unspecified (principal); M81.0 Age-related osteoporosis without current pathological fracture; E55.9 Vitamin D deficiency, unspecified; I10 Essential (primary) hypertension; E78.00 Pure hypercholesterolemia, unspecified

== ENCOUNTER → 2025-07-11 | Outpatient (REF) | payer MEDICARE ==
[~2025-07-11] MED LIST changes: +CALC-134 PO; -CALCTAB17 PO
[2025-07-11 17:36] LABS: ALT/SGPT 16.0 U/L (7.0-40); AST/SGOT 23.0 U/L (<34); CALCIUM LEVEL 9.0 MG/DL (8.3-10.6); CARBON DIOXIDE LEVEL 28.0 MMOL/L (20-31); CHLORIDE LEVEL 106.0 MMOL/L (98-107); CHOLESTEROL LEVEL 159.0 MG/DL (<200); CHOLESTEROL RISK RATIO 2.99 (<5); CREATININE FOR GFR 0.94 MG/DL (0.55-1.30); GLOMERULAR FILTRATION RATE 63.3 (>39); LDL CHOLESTEROL 81.9 MG/DL (<100); NON-HDL-C 105.9 MG/DL; POTASSIUM SERUM 3.9 MMOL/L (3.5-5.1); SODIUM LEVEL 142.0 MMOL/L (136-145); TRIGLYCERIDES LEVEL 120.0 MG/DL (<150)
[2025-07-11 17:39] LABS: BASO # 0.0 10^3/uL (0.0-0.2); BASO % 0.5 % (0.0-1.0); EOS # 0.2 10^3/uL (0.0-0.5); EOS % 3.4 % (0.0-3.0); FREE T4 0.85 NG/DL (0.89-1.76); LYMPH # 1.7 10^3/uL (1.5-5.0); LYMPH % 28.3 % (24.0-44.0); MONO # 0.4 10^3/uL (0.0-0.8); MONO % 6.0 % (2.0-8.0); NEUTROPHILS # 3.8 10^3/uL (1.5-8.5); NEUTROPHILS % 61.5 % (36.0-66.0); PLATELET COUNT, AUTOMATED 244 10^3/uL (150-450); TOTAL 25(OH) VITAMIN D 64.3 NG/ML (20.0-100.0)
== END ==
LOC: M SFHCCAPE 07:57
PROVIDERS: ATTEND Physician Assistant Medical
DX: R79.89 Other specified abnormal findings of blood chemistry (principal); E78.00 Pure hypercholesterolemia, unspecified; I10 Essential (primary) hypertension; E55.9 Vitamin D deficiency, unspecified